=== PATIENT | female | born 1985 | race Two or more races ===

== ENCOUNTER → 2019-11-25 15:53 | Outpatient (BNVA) | payer OTHER, SELFPAY | PROVIDERS: Family Provider Family Medicine; PCP Family Medicine; Visit Provider Obstetrics & Gynecology | DX: N93.9 Abnormal uterine and vaginal bleeding, unspecified (principal) | CPT/HCPCS: 81025; 83001; 84146; 84443 ==

== ENCOUNTER → 2019-12-09 08:50 | Outpatient (BNVA) | payer OTHER, SELFPAY | PROVIDERS: Family Provider Family Medicine; PCP Family Medicine; Visit Provider Obstetrics & Gynecology | DX: R10.2 Pelvic and perineal pain (principal); N93.9 Abnormal uterine and vaginal bleeding, unspecified | CPT/HCPCS: 76830 ==

== ENCOUNTER → 2019-12-16 13:35 | Outpatient (BNVA) | payer OTHER, SELFPAY | PROVIDERS: Family Provider Family Medicine; PCP Family Medicine; Visit Provider Obstetrics & Gynecology | DX: Z12.4 Encounter for screening for malignant neoplasm of cervix (principal); N93.9 Abnormal uterine and vaginal bleeding, unspecified; R10.2 Pelvic and perineal pain | CPT/HCPCS: 88175 ==

== ENCOUNTER → 2021-11-15 13:56 | Outpatient (BNVA) | payer OTHER, SELFPAY | PROVIDERS: Family Provider Family Medicine; PCP Family Medicine; Visit Provider Obstetrics & Gynecology | DX: D25.0 Submucous leiomyoma of uterus (principal); R10.2 Pelvic and perineal pain | CPT/HCPCS: 76830 ==

== ENCOUNTER 2022-03-05 05:57 | Day surgery (SDC) | payer OTHER, SELFPAY ==
[2022-03-03 09:41] VITALS: BMI 29.2
[2022-03-03 10:08] LABS: OR HCG Qualitative Urine Negative (Negative)
[2022-03-03 10:10] LABS: Hematocrit 34.6 % (37.0-47.0); Hemoglobin 10.9 g/dL (11.5-15.3); Mean Corpuscular HGB Conc 31.5 g/dL (30.0-36.0); Mean Corpuscular Hemoglobin 23.9 pg (28.0-34.0); Mean Corpuscular Volume 75.7 fl (81-99); Mean Platelet Volume 9.5 fL (7.4-10.4); Red Blood Count 4.57 10^6/uL (4.1-5.3); Red Cell Distribution Width 19.8 % (12.1-15.1)
[2022-03-03 10:23] LABS: Bilirubin Urine Neg (Negative); Blood Urine 2+ (Negative); Glucose Urine UA Norm (Normal); Ketones Urine Negative (Negative); Leukocyte Esterase Urine Negative (Negative); Nitrate Urine Negative (Negative); Protein Urine Neg (Negative); Specific Gravity, Urine 1.005 (1.005-1.030); Urine Appearance Clear (CLEAR); Urine Color Straw (Yellow); Urobilinogen Urine Norm (Negative); pH Urine 5 (5-7)
[2022-03-03 10:24] LABS: Add Urine Microscopic? YES; Bacteria Urine 1+ /hpf; RBC Urine RARE /hpf (0-2); Squamous Epithelial Cell Urine 0-4 /hpf (0-5); WBC Urine 0-4 /hpf (0-5)
[2022-03-03 10:26] LABS: Add Urine Culture? No
[2022-03-03 10:37] LABS: Alanine Aminotransferase 12 U/L (0-33); Albumin Level 4.7 g/dL (3.5-5.2); Alkaline Phosphatase 88 U/L (35-105); Anion Gap 15.9 (5-19); Aspartate Amino Transferase 16 U/L (0-32); Blood Urea Nitrogen 14 mg/dL (6-20); Calcium 9.3 mg/dL (8.5-10.5); Carbon Dioxide 24 mmol/L (22-29); Chloride 105 mmol/L (98-107); Globulin 2.6 g/dL (1.3-4.6); Glomerular Filtration Rate 114.4 mL/min (90-130); Glucose 108 mg/dL (65-115); Osmolality Calculated 291 mOsm/kg (285-295); Potassium 4.9 mmol/L (3.5-5.1); Sodium 140 mmol/L (136-145); Total Bilirubin 0.2 mg/dL (0.15-1.2); Total Protein 7.3 g/dL (6.6-8.7)
[2022-03-03 10:45] LABS: Slide Review Slide Review Perform
[2022-03-03 10:49] LABS: Absolute Eosinophils 2.8 10^3/cmm (0.0-0.7); Basophils Absolute 2.1 10^3/cmm (0.0-0.2); Eosinophils 4 %; Lymphocytes 17 %; Monocytes Absolute 1.4 10^3/cmm (0.1-0.6); Segmented Neutrophils 54 %; Total Cells Counted 100 (0-100)
[2022-03-03 10:54] LABS: Absolute Neutrophil 45.1 10^3/cmm (1.4-6.5); Anisocytosis 1+; Blastocytes 2 % (0-0); Macrocytosis Trace; Microcytosis Trace; Platelet Estimate Increased (Normal); Poikilocytosis Trace
--- NOTE | 2022-03-03 10:55 | PC.NURSE ---
Lab called and reported the patient had some critical labs. Lab reported that the patient had a WBC of 70.4, plt 1688, with a manual diff that she saw 2 blast. Labs called to [facility].
[2022-03-03 10:56] LABS: White Blood Count 70.4 10^3/uL (4.0-10.0)
[2022-03-03 10:57] LABS: Platelet Count 1688 10^3/cmm (130-400)
--- NOTE | 2022-03-03 16:46 | ANES.PREANE2 ---
Pre-Anesthetic Assessment Height/Weight: Height 1.52 m Weight 68.039 kg Preop Diagnosis: chronic pelvic pain Operation Date: 03/05/22 12:45 Proposed Procedures p Laparoscopy, surgical ablation of uterine fibroids 20914,D25.0(Not Applicable) - Foreign Rubio MD s Laser Ablation(Not Applicable) - Foreign Rubio MD Familial anesthetic complications: None Was Beta Simone taken within 24 hours: N/A Was Clonidine taken within 24 hours: N/A Social No alcohol and No tobacco Exam alert, oriented x 3, clear to auscultation bilaterally and regular rate & rhythm Airway Submandibular: within normal limits Cervical ROM: within normal limits Mallampati: Class I Dentition: full History/ROS No significant complaints Pulmonary None reported CV/HEM None reported AUB, fibroids Hepatic None reported GI None reported Metabolic None reported Musc/skel None reported Neuropsych 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 Patient consents to proceed with general anesthesia. Risk of > 500 ml blood loss (7ml/kg in children): No Medications/Allergies Home Medications Medication Instructions Recorded Confirmed Last Taken Type ibuprofen 600 mg tablet 600 mg PO TID PRN pain #60 tabs 12/16/19 03/03/22 Unknown Rx Allergies Allergy/AdvReac Type Severity Reaction Status Date / Time ethinyl estradiol Allergy Severe hives Verified 03/03/22 09:40 [From Sprintec (28)] Latex, Natural Rubber Allergy Severe rash Verified 03/03/22 09:40 norgestimate Allergy Severe hives Verified 03/03/22 09:40 [From Sprintec (28)] [facility] Anesthesia Medical History Abnormal uterine bleeding (AUB) Family History Grandmother Breast cancer maternal diagnosed at 84 paternal diagnosed at 72 Diabetes paternal and paternal great grandmother Heart disease maternal and paternal Mother Hypertension Grandfather Heart disease maternal and paternal Denies family history of Colon cancer Ovarian cancer Clotting disorder Hyperlipidemia Anesthesia complication Bleeding disorder Uterine cancer Thyroid condition Stroke Social History Smoking and tobacco status: never smoked Alcohol intake: current Alcohol intake frequency: holidays/special occasions only Alcohol type: beer and wine Data Anesthesia : 03/03/22 09:49 03/03/22 09:49 Short CBC 03/03/22 Range/Units 09:49 WBC 70.4 H* (4.0-10.0) 10^3/uL Hgb 10.9 L (11.5-15.3) g/dL Hct 34.6 L (37.0-47.0) % MCV 75.7 L (81-99) fl Plt Count 1688 H* (130-400) 10^3/cmm BMP 03/03/22 09:49 Sodium 140 Potassium 4.9 Chloride 105 Carbon Dioxide 24 BUN 14 Creatinine 0.6 Glucose 108 Calcium 9.3 Liver Function 03/03/22 Range/Units 09:49 Total Bilirubin 0.2 (0.15-1.2) mg/dL AST 16 (0-32) U/L ALT 12 (0-33) U/L Alkaline Phosphatase 88 (35-105) U/L Albumin 4.7 (3.5-5.2) g/dL Urine 03/03/22 Range/Units 09:35 Urine Color Straw (Yellow) Urine Appearance Clear (CLEAR) Urine pH 5 (5-7) Ur Specific [place] 1.005 (1.005-1.030) Urine Protein Neg (Negative) Urine Glucose (UA) Norm (Normal) Urine Ketones Negative (Negative) Urine Nitrate Negative (Negative) Urine Bilirubin Neg (Negative) Ur Leukocyte Esterase Negative (Negative) Urine RBC Rare (0-2) /hpf Urine WBC 0-4 H (0-5) /hpf Blood Bank 03/03/22 09:49 Blood Type O Positive Rho(D) Type Positive Antibody Screen Negative Cardiac Studies: No Data to Display
[2022-03-05] VITALS (12 sets, daily range): BP systolic 107–125; BP diastolic 48–90; PULSE 70–108; RESP 16–18; TEMP 36.3–37.1; O2SAT 97–100
--- NOTE | 2022-03-05 06:24 | P.ANESUD_ITS ---
Pre-Anesthetic Update Pre-Anesthetic Assessment: Date of Surgery/Procedure: 03/05/22 Preop Elizabeth gnosis: Leiomyoma, abnormal uterine bleeding, pelvic pain Proposed Procedure: Operation Date: 03/05/22 07:00 Proposed Procedures p Laparoscopy, surgical ablation of uterine fibroids 01393,D25.0(Not Applicable) - Foreign Rubio MD s Laser Ablation(Not Applicable) - Foreign Rubio MD Any changes to Pre-Anesthetic Assessment?: No Last Intake: Intake Last Liquid Date 03/04/22 Last Liquid Time 20:00 Last Solid Date 03/04/22 Last Solid Time 17:30 Labs Last 48hrs: Short CBC 03/03/22 Range/Units 09:49 WBC 70.4 H* (4.0-10.0) 10^3/ uL Hgb 10.9 L (11.5-15.3) g/dL Hct 34.6 L (37.0-47.0) % MCV 75.7 L (81-99) fl Plt Count 1688 H* (130-400) 10^3/c mm BMP 03/03/22 09:49 Sodium 140 Potassium 4.9 Chloride 105 Carbon Dioxide 24 BUN 14 Creatinine 0.6 Glucose 108 Calcium 9.3 Liver Function 03/03/22 Range/Units 09:49 Total Bilirubin 0.2 (0.15-1.2) mg/dL AST 16 (0-32) U/L ALT 12 (0-33) U/L Alkaline Phosphata se 88 (35-105) U/L Albumin 4.7 (3.5-5.2) g/dL Urine 03/03/22 Range/Units 09:35 Urine Color Straw (Yellow) Urine Appearance Clear (CLEAR) Urine pH 5 (5-7) Ur Specific Gravit y 1.005 (1.005-1.030) Urine Protein Neg (Negative) Urine Glucose (UA) Norm (Normal) Urine Ketones Negative (Negative) Urine Nitrate Negative (Negative) Urine Bilirubin Neg (Negative) Ur Leukocyte Consuelo ase Negative (Negative) Urine RBC Rare (0-2) /hpf Urine WBC 0-4 H (0-5) /hpf Blood Bank 03/03/22 09:49 Blood Type O Positive Rho(D) Type Positive Antibody Screen Negative Vitals: Temperature 98.8 F 03/05/22 06:10 Temperature Source Temporal Artery S can 03/05/22 06:10 Pulse Rate 70 03/05/22 06:10 Respiratory Rate 18 03/05/22 06:10 Blood Pressure 121/80 03/05/22 06:10 Blood Pressure Tana n 93 03/05/22 06:10 Pulse Oximetry 99 03/05/22 06:10 Oxygen Delivery Me thod 03/05/22 06:10 Exam: Pre-Anes Outpt Exam: alert, oriented x 3, clear to auscultation bilaterally and regular rate & rhythm Cardiac Studies: No Data to Display
[2022-03-05] MEDS: scopolamine 1.5 Patch 1 PATCH TRANSDERMA (06:30)
[2022-03-05] MEDS: sodium chloride 0.9% 500 ML IV (06:30)
[2022-03-05 06:37] LABS: OR HCG Qualitative Urine Negative (Negative)
--- NOTE | 2022-03-05 06:52 | W.PM.OPSUD ---
Surgery/Procedure H&P Update DATE OF PROCEDURE: March 05, 2022 DATE H&P PERFORMED: 03/03/22 H&P UPDATE INFORMATION: I have reviewed H&P completed within last 30 days, I have examined patient prior to procedure and No changes to prior documentation PREOP DIAGNOSIS: Leiomyoma, abnormal uterine bleeding, pelvic pain PLANNED PROCEDURE: Operation Date: 03/05/22 07:00 Proposed Procedures p Laparoscopy, surgical ablation of uterine fibroids 94213,D25.0(Not Applicable) - Foreign Rubio MD s Laser Ablation(Not Applicable) - Foreign Rubio MD
[2022-03-05] MEDS: sodium chloride 0.9% 1,000 ML 30 ML IV (06:58)
[2022-03-05] MEDS: ceFOXitin 2,000 MG in sodium chloride 0.9% (plus) 50 ML 100 MG IV (06:59)
[2022-03-05 07:37] LABS: Basophils # 2.7 10^3/uL (0.0-0.1); Basophils % 4.7 %; Eosinophils # 1.7 10^3/uL (0.0-0.8); Eosinophils % 3.1 %; Hematocrit 31.4 % (37.0-47.0); Hemoglobin 9.5 g/dL (11.5-15.3); Lymphocytes # 4.7 10^3/uL (0.8-4.8); Lymphocytes % 8.4 %; Mean Corpuscular HGB Conc 30.3 g/dL (30.0-36.0); Mean Corpuscular Hemoglobin 23.5 pg (28.0-34.0); Mean Corpuscular Volume 77.5 fl (81-99); Mean Platelet Volume 9.6 fL (7.4-10.4); Monocytes # 1.5 10^3/uL (0.2-0.9); Monocytes % 2.6 %; Neutrophils # 31.36 10^3/uL (1.8-7.7); Nucleated Red Blood Cells % 0 %; Platelet Count 1247 10^3/cmm (130-400); Red Blood Count 4.05 10^6/uL (4.1-5.3); Red Cell Distribution Width 19.2 % (12.1-15.1)
[2022-03-05] MEDS: enoxaparin 30 mg/0.3 mL Syringe SUBCUT (07:44)
[2022-03-05 08:26] LABS: Slide Review Slide Review Perform
--- NOTE | 2022-03-05 08:29 | PC.NURSE ---
Lab called to report a critical lab result on patient. Patient had a WBC of 56. Dr. Rubio notified. Dr. Rubio then stated I want the plts. I stated that lab did not report a critical lab for the plts but I will look and report the result. This RN looked at the chart and found the plts and reported the plt count to the patient.
--- NOTE | 2022-03-05 08:32 | P.OP_ITS ---
Operative Report Date of procedure: March 05, 2022 Pre-op diagnosis: Preop Diagnosis Leiomyoma, abnormal uterine bleeding, pelvic pain Post-op diagnosis: Uterine fibroid Procedure done: Laparoscopic uterine fibroid radiofrequency Ablation via Acessa. Implants: none Surgeon: Foreign Rubio MD Estimated blood loss (mL): 5 IV fluids (mL): 1,000 Urine output (mL): 50 Complications: none Procedure: DESCRIPTION OF PROCEDURE: After informed consent, the patient was taken to the operating room where general anesthesia was administered. The patient was examined under anesthesia and found to have a normal uterus with normal adnexa. She was placed in the dorsal lithotomy position and prepped and draped in sterile fashion. Pre- Procedure Time-Out verifying the correct patient identity, correct procedure verified with consent, correct site and side, correct patient position, availability of correct implants and any special equipment or requirements was performed and acknowledge by the OR team. A weighted speculum was placed in the vagina, and the anterior lip of cervix was grasped with the single toothed tenaculum. A uterine manipulator was advanced into the endocervical. Tenaculum was removed after uterine manipulator was secured. The speculum was removed from the vagina. An intraumbilical incision was made with a scalpel. While tenting up on the abdomen, a Verres needle with sleeve was admitted into the intra-abdominal cavity. A saline drop test was performed and noted to be within normal limits. Pneumoperitoneum was attained with 4 liters of carbon dioxide. The Verres needle was removed. A 5 mm trocar and sleeve were admitted into the abdomen and laparoscopic confirmation of location was achieved, A second incision was made 3 cm above the symphysis pubis, and a 10 mm trocar and sleeve were admitted into the abdomen under direct, laparoscopic visualization without complication. A survey revealed normal abdominal anatomy but pelvic survey shows an enlarged uterus, normal left and right adnexa. A 5 mm blunt probe was advanced through the second trocar sleeve, and light manipulation of ovaries and uterus to assess the posterior aspects was performed. The laparoscopic ultrasound probe introduced throught the 10 mm trocar and placed directly on the posterior aspect of the uterus that allows them to locate the uterine leiomyomas. Then the Acessa handpiece was deploys placing the tip into the fibroid. The ablation was parformed with out complications. the same procedure was carried out for a second fibroid without complications. Carbon dioxide was allowed to escape from the abdomen. The instruments were removed, and skin closed with 3-O Vicryl and cover with Dermabond. The instruments were removed from the vagina, and excellent hemostasis was noted. The patient tolerated the procedure well, and sponge, lap and needle count were correct times two. The patient taken to the recovery room in good condition.
[2022-03-05] MEDS: meperidine 50 mg/mL INJ 12.5 MG IVP (08:53)
[2022-03-05] MEDS: HYDROcodone-acetaminophen 5-325 mg Tablet 1 TAB PO (09:40)
--- NOTE | 2022-03-05 10:11 | SUR.OPER ---
Markerlyu Console Model No [id number] Serial No [id number] used for procedure.
--- NOTE | 2022-03-05 11:45 | ANE.PACU2 ---
Inpatient post-anesthesia follow up: Airway intact: Yes Vital signs: Temperature 97.9 F Pulse Rate 83 Respiratory Rate 18 Blood Pressure 107/73 Pulse Oximetry 99 Oxygen Delivery Me thod Room Air Oxygen Flow Rate 6 Fraction of Inspir ed Oxygen Hydration adequate: Yes Nausea and vomiting: No Pain level: 4 Mental status: Baseline
== END 2022-03-05 10:10 | disposition home or self-care (01) ==
PROVIDERS: PCP Family Medicine; Visit Provider Obstetrics & Gynecology
PROC: (CPT 49320; principal; 2022-03-05 07:00)
DX: D25.0 Submucous leiomyoma of uterus (principal); N93.9 Abnormal uterine and vaginal bleeding, unspecified; G89.29 Other chronic pain; R10.2 Pelvic and perineal pain
CPT/HCPCS: 58674; 36415; 51702; 80053; 81001; 81025; 84703; 85007; 85025; 86850; 86900; J0694; J1100; J1200; J1650; J2175; J2250; J2370; J2405; J2704; J2710; J3010; J3490; J7030; J7040

== ENCOUNTER 2022-04-17 13:00 | Oncology outpatient (recurring) (ONCR) | payer OTHER, SELFPAY ==
[2022-03-24 09:28] LABS: Hematocrit 32.5 % (37.0-47.0); Mean Corpuscular HGB Conc 30.8 g/dL (30.0-36.0); Mean Corpuscular Hemoglobin 23.8 pg (28.0-34.0); Mean Corpuscular Volume 77.4 fl (81-99)
[2022-03-24 09:56] LABS: Glomerular Filtration Rate 114.4 mL/min (90-130)
[2022-03-24 10:14] LABS: Platelet Count 1736 10^3/cmm (130-400); Slide Review Slide Review Perform; White Blood Count 81.3 10^3/uL (4.0-10.0)
[2022-03-24 10:15] LABS: Absolute Neutrophil 46.3 10^3/cmm (1.4-6.5); Absolute Segmented Neutrophil 34.1 10/cmm (1.6-7.1); Band Neutrophils Absolute 12.2 10^3/cmm (0.0-1.2); Eosinophils 5 %; Lymphocytes 13 %; Lymphocytes Absolute 10.6 10^3/cmm (1.2-3.4); Monocytes Absolute 0.8 10^3/cmm (0.1-0.6); Platelet Estimate Increased (Normal); Segmented Neutrophils 42 %; Total Cells Counted 100 (0-100)
[2022-03-24 10:16] LABS: Anisocytosis 1+; Microcytosis 1+
[2022-03-24 10:21] LABS: Anion Gap 16.3 (5-19); Blood Urea Nitrogen 15 mg/dL (6-20); Calcium 9.3 mg/dL (8.5-10.5); Carbon Dioxide 21 mmol/L (22-29); Chloride 102 mmol/L (98-107); Ferritin 7 ng/mL (15-150); Glucose 102 mg/dL (65-115); Iron 21 ug/dL (37-145); Osmolality Calculated 281 mOsm/kg (285-295); Percent Saturation 5.9 % (20-50); Potassium 4.3 mmol/L (3.5-5.1); Sodium 135 mmol/L (136-145); Total Iron Binding Capacity 354 mcg/dl; Unsaturated Iron Binding 333 ug/dL (112-347)
[2022-03-24 10:22] LABS: Alanine Aminotransferase 17 U/L (0-33); Albumin Level 4.4 g/dL (3.5-5.2); Alkaline Phosphatase 82 U/L (35-105); Aspartate Amino Transferase 19 U/L (0-32); Globulin 2.5 g/dL (1.3-4.6); Lactate Dehydrogenase 448 U/L (135-214); Thyroid Stimulating Hormone 1.57 uIU/mL (0.27-4.20); Total Bilirubin 0.2 mg/dL (0.15-1.2); Total Protein 6.9 g/dL (6.6-8.7)
[2022-03-24 10:39] LABS: LAB Peripheral Smear Sent for Review
[2022-03-24 11:39] LABS: Vitamin B12 > 2000 pg/mL (232-1245)
[2022-03-24 12:08] LABS: Uric Acid 5.3 mg/dL (2.4-5.7)
[2022-04-07 11:26] LABS: Basophils # 3.2 10^3/uL (0.0-0.1); Basophils % 4.5 %; Eosinophils % 2.8 %; Hematocrit 28.7 % (37.0-47.0); Hemoglobin 8.9 g/dL (11.5-15.3); Lymphocytes # 6.5 10^3/uL (0.8-4.8); Lymphocytes % 9.1 %; Mean Corpuscular Hemoglobin 24.4 pg (28.0-34.0); Mean Corpuscular Volume 78.6 fl (81-99); Monocytes # 1.9 10^3/uL (0.2-0.9); Monocytes % 2.6 %; Neutrophils # 40.73 10^3/uL (1.8-7.7); Neutrophils % 57.3 %; Nucleated Red Blood Cells # 0.1 /100WBC; Nucleated Red Blood Cells % 0.2 %; Red Blood Count 3.65 10^6/uL (4.1-5.3); Red Cell Distribution Width 20.9 % (12.1-15.1)
[2022-04-07 11:56] LABS: Platelet Count 1616 10^3/cmm (130-400); White Blood Count 71.2 10^3/uL (4.0-10.0)
[2022-04-07 12:00] LABS: Slide Review Slide Review Perform
[2022-04-07 12:01] LABS: Alanine Aminotransferase 9 U/L (0-33); Albumin Level 4.6 g/dL (3.5-5.2); Alkaline Phosphatase 76 U/L (35-105); Anion Gap 12.8 (5-19); Aspartate Amino Transferase 19 U/L (0-32); Blood Urea Nitrogen 10 mg/dL (6-20); Calcium 9.3 mg/dL (8.5-10.5); Carbon Dioxide 24 mmol/L (22-29); Chloride 104 mmol/L (98-107); Globulin 2.4 g/dL (1.3-4.6); Glomerular Filtration Rate 114.4 mL/min (90-130); Glucose 97 mg/dL (65-115); Lactate Dehydrogenase 486 U/L (135-214); Osmolality Calculated 283 mOsm/kg (285-295); Potassium 3.8 mmol/L (3.5-5.1); Sodium 137 mmol/L (136-145); Total Bilirubin 0.3 mg/dL (0.15-1.2); Uric Acid 2.3 mg/dL (2.4-5.7)
[2022-04-07 12:09] LABS: Hepatitis B Core AB, Total Non-Reactive (Nonreactive); Hepatitis B Surface AB 58.3 (11.5-1000); Hepatitis B Surface Antigen Non-Reactive (Nonreactive)
[2022-04-10 10:36] LABS: Basophils # 2.3 10^3/uL (0.0-0.1); Basophils % 5.3 %; Eosinophils # 1.8 10^3/uL (0.0-0.8); Eosinophils % 4.3 %; Hematocrit 29.3 % (37.0-47.0); Lymphocytes # 4.8 10^3/uL (0.8-4.8); Lymphocytes % 11.4 %; Mean Corpuscular HGB Conc 30.7 g/dL (30.0-36.0); Mean Corpuscular Hemoglobin 24.4 pg (28.0-34.0); Mean Corpuscular Volume 79.4 fl (81-99); Mean Platelet Volume 9.6 fL (7.4-10.4); Monocytes # 0.9 10^3/uL (0.2-0.9); Monocytes % 2.1 %; Neutrophils # 24.37 10^3/uL (1.8-7.7); Neutrophils % 57.6 %; Nucleated Red Blood Cells # 0.1 /100WBC; Nucleated Red Blood Cells % 0.2 %; Positive C 1; Positive M 1; Red Blood Count 3.69 10^6/uL (4.1-5.3); Red Cell Distribution Width 21.2 % (12.1-15.1)
[2022-04-10 11:07] LABS: Platelet Count 1691 10^3/cmm (130-400); White Blood Count 42.3 10^3/uL (4.0-10.0)
--- NOTE | 2022-04-10 11:13 | XRR_ITS ---
PROCEDURE INFORMATION: Exam: XR Chest Exam date and time: 04/10/2022 11:16 AM Age: 36 years old Clinical indication: Dyspnea and shortness of breath; Patient HX: HX of leukemia; Additional info: SOB, cough TECHNIQUE: Imaging protocol: Radiologic exam of the chest. Views: 2 views. COMPARISON: ES surgery / GI images 03/05/2022 6:56 AM FINDINGS: Lungs: Unremarkable. No consolidation. Pleural spaces: Unremarkable. No pleural effusion. No pneumothorax. Heart/Mediastinum: Unremarkable. No cardiomegaly. Bones/joints: Unremarkable. XR/XR chest 2V* [id number] IMPRESSION: No acute findings.
[2022-04-12 10:44] LABS: P190 BCR ALB1 NOT DETECTED; P210 BCR ALB1 DETECTED; Prior Results NG; Source serum
[2022-04-14 08:36] LABS: Basophils # 0.9 10^3/uL (0.0-0.1); Basophils % 9.1 %; Eosinophils % 9.9 %; Hematocrit 29.7 % (37.0-47.0); Hemoglobin 8.9 g/dL (11.5-15.3); Lymphocytes # 2.1 10^3/uL (0.8-4.8); Lymphocytes % 20.4 %; Mean Corpuscular Hemoglobin 24.5 pg (28.0-34.0); Mean Corpuscular Volume 81.8 fl (81-99); Mean Platelet Volume 9.4 fL (7.4-10.4); Monocytes # 0.2 10^3/uL (0.2-0.9); Neutrophils # 5.81 10^3/uL (1.8-7.7); Neutrophils % 57.8 %; Nucleated Red Blood Cells % 0.3 %; Red Blood Count 3.63 10^6/uL (4.1-5.3); Red Cell Distribution Width 23.1 % (12.1-15.1); White Blood Count 10.1 10^3/uL (4.0-10.0)
[2022-04-14 09:38] LABS: Slide Review Slide Review Perform
[2022-04-14 09:39] LABS: Platelet Count 1541 10^3/cmm (130-400)
--- NOTE | 2022-04-17 15:42 | PC.PHAR ---
Nilotinib Education: patient arrived with 2 family members for education for santiagoigna. Patient did not bring medication with her but she states it has arrived at her house. Patient recently developed rash, moncho thinks due to allopurinol so she has been advised to stop allopurinol for now. patient complaining rash is very uncomfortable under her arm pits. Patient is to get biopsy on thursday. she understands that she is not to start nilotinib until oncologist instructs her to do so. Patient advised to take medication on an empty stomach twice daily. she is to avoid grapefruit products. we talked about common side effects such as rash, fatigue, myalgia, arthralgia, n/v/d/c. she is to call if any of these symptoms are intolerable. She is to call the office or go to the ER with palpitations, bleed, fever s/sx of pancreatitis or hepatotoxicity. she is advised not to get . she states she has her tubes tied and plans for hysterectomy in near future.
== END 2022-04-21 23:59 | disposition home or self-care (01) ==
PROVIDERS: PCP Family Medicine; Visit Provider Internal Medicine Medical Oncology
DX: D64.9 Anemia, unspecified (principal)
CPT/HCPCS: 36415; 71046; 80053; 81206; 81207; 82607; 82728; 83540; 83550; 83615; 84443; 84550; 85007; 85025; 86705; 86706; 87340; 88374

== ENCOUNTER 2022-04-21 09:45 | Day surgery (SDC) | payer OTHER, SELFPAY ==
[2022-04-17 15:04] VITALS: BMI 28.5
[2022-04-21 11:02] VITALS: BP 131/88; PULSE 84; RESP 18; TEMP 37; O2SAT 99
[2022-04-21] MEDS: sodium chloride 0.9% 1,000 ML 30 ML IV (11:07)
[2022-04-21 11:16] LABS: OR HCG Qualitative Urine Negative (Negative)
[2022-04-21 11:33] LABS: Basophils # 0.3 10^3/uL (0.0-0.1); Basophils % 6.3 %; Eosinophils % 0.4 %; Hematocrit 30.8 % (37.0-47.0); Hemoglobin 9.4 g/dL (11.5-15.3); Lymphocytes # 1.2 10^3/uL (0.8-4.8); Lymphocytes % 22.5 %; Mean Corpuscular HGB Conc 30.5 g/dL (30.0-36.0); Mean Corpuscular Hemoglobin 24.2 pg (28.0-34.0); Mean Corpuscular Volume 79.2 fl (81-99); Mean Platelet Volume 8.8 fL (7.4-10.4); Monocytes # 0.5 10^3/uL (0.2-0.9); Monocytes % 8.4 %; Neutrophils # 3.34 10^3/uL (1.8-7.7); Nucleated Red Blood Cells % 0 %; Platelet Count 1379 10^3/cmm (130-400); Red Blood Count 3.89 10^6/uL (4.1-5.3); Red Cell Distribution Width 23.3 % (12.1-15.1); White Blood Count 5.4 10^3/uL (4.0-10.0)
--- NOTE | 2022-04-21 12:00 | P.ANESASSM_ITS ---
Pre-Anesthetic Assessment Height/Weight: Height 1.52 m Weight 66.224 kg Temp Pulse Resp BP Pulse Ox O2 Del Method 98.6 F 84 18 131/88 99 04/21/22 11:02 04/21/22 11:02 04/21/22 11:02 04/21/22 11:02 04/21/22 11:02 04/21/22 11:02 Preop Diagnosis: Leiomyoma, abnormal uterine bleeding, pelvic pain Operation Date: 04/21/22 12:00 Proposed Procedures p Bone Marrow Biospy With Aspiration(Not Applicable) - Pilar Stewart MD Familial anesthetic complications: none Was Beta Simone taken within 24 hours: N/A Was Clonidine taken within 24 hours: N/A Last intake: Intake Last Liquid Date 04/20/22 Last Liquid Time 21:30 Last Solid Date 04/20/22 Last Solid Time 20:30 Social No alcohol and No tobacco Exam alert and oriented x 3 Airway Submandibular: within normal limits Cervical ROM: within normal limits Mallampati: Class II Dentition: full History/ROS No significant history except as noted Pulmonary None reported CV/HEM None reported None reported Hepatic None reported GI None reported Metabolic None reported CML diagnosed about 2 weeks ago [facility] [place] None reported Anesthetic Plan ASA status: 2 Risk of > 500 ml blood loss (7ml/kg in children): No Medications/Allergies Home Medications Medication Instructions Recorded Confirmed Last Taken Type acetaminophen 500 mg tablet 500 mg PO Q6H PRN Pain 03/05/22 04/21/22 04/20/22 History ibuprofen 800 mg tablet 800 mg PO TID PRN pain #60 tabs 03/05/22 04/21/22 2 Weeks Ago Rx ~04/07/22 nilotinib 150 mg capsule (Tasigna) 300 mg PO Q12H #112 caps 04/04/22 04/21/22 04/20/22 Rx hydroxyurea 500 mg capsule 1,000 mg PO BID #120 caps 04/07/22 04/21/22 04/20/22 Rx methylprednisolone 4 mg tablets in See Rx Instructions PO PER PKG DIR 04/17/22 04/21/22 04/21/22 Rx a dose pack (Medrol (Mitchell)) #21 ea Allergies Allergy/AdvReac Type Severity Reaction Status Date / Time ethinyl estradiol Allergy Severe hives Verified 04/21/22 10:56 [From Sprintec (28)] Latex, Natural Rubber Allergy Severe rash Verified 04/21/22 10:56 norgestimate Allergy Severe hives Verified 04/21/22 10:56 [From [facility] (28)] allopurinol Allergy Mild ALGY-Rash Verified 04/21/22 10:56 Current Medications Generic Name Dose Route Start Last Admin Trade Name Sidneyq PRN Reason Stop Dose Admin Sodium Chloride 1,000 mls @ 30 mls/hr 04/21/22 10:15 04/21/22 11:07 Sodium Chloride 0.9% IV 04/22/22 10:14 30 mls/hr .Q24H JASBIR Administration [facility] Anesthesia Medical History (Updated 04/14/22 @ 08:59 by Freya Arriaza LPN) Abnormal uterine bleeding (AUB) Benign occipital epilepsy of childhood Chronic anxiety Surgical History (Updated 03/24/22 @ 08:38 by Tavares Yanez MD) H/O tubal ligation S/P endometrial ablation 03/05/2022:laparoscopic uterine fibroid radiofrequency ablation via Acessa performed by Dr. Rubio at [facility] Family History Grandmother Breast cancer maternal diagnosed at 84 paternal diagnosed at 72 Diabetes paternal and paternal great grandmother Heart disease maternal and paternal Mother Hypertension Grandfather Heart disease maternal and paternal Denies family history of Colon cancer Ovarian cancer Clotting disorder Hyperlipidemia Anesthesia complication Bleeding disorder Uterine cancer Thyroid condition Stroke Social History Smoking and tobacco status: never smoked Alcohol intake: current Alcohol intake frequency: holidays/special occasions only Alcohol type: beer and wine Data Anesthesia : 04/21/22 11:20 Short CBC 04/21/22 Range/Units 11:20 WBC 5.4 (4.0-10.0) 10^3/uL Hgb 9.4 L (11.5-15.3) g/dL Hct 30.8 L (37.0-47.0) % MCV 79.2 L (81-99) fl Plt Count 1379 H (130-400) 10^3/cmm Neut % (Auto) 62.0 % Neut # (Auto) 3.34 (1.8-7.7) 10^3/uL Cardiac Studies: No Data to Display
--- NOTE | 2022-04-21 12:36 | W.PM.OPSUD ---
Surgery/Procedure H&P Update DATE OF PROCEDURE: April 21, 2022 DATE H&P PERFORMED: 03/03/22 CHANGES TO PREVIOUS DOCUMENTATION: Seen and examined, no obvious changes or complaints since her last visit to the clinic PREOP DIAGNOSIS: Leiomyoma, abnormal uterine bleeding, pelvic pain PRIMARY INDICATION FOR PROCEDURE: Thrombocytosis/leukocytosis/myeloproliferative disorder PLANNED PROCEDURE: Operation Date: 04/21/22 12:00 Proposed Procedures p Bone Marrow Biospy With Aspiration(Not Applicable) - Pilar Stewart MD
--- NOTE | 2022-04-21 12:55 | ANES.PREANE2 ---
Pre-Anesthetic Assessment Height/Weight: Height 1.52 m Weight 66.224 kg Temp Pulse Resp BP Pulse Ox O2 Del Method 98.6 F 84 18 131/88 99 04/21/22 11:02 04/21/22 11:02 04/21/22 11:02 04/21/22 11:02 04/21/22 11:02 04/21/22 11:02 Preop Diagnosis: Leiomyoma, abnormal uterine bleeding, pelvic pain Operation Date: 04/21/22 12:00 Proposed Procedures p Bone Marrow Biospy With Aspiration(Not Applicable) - Pilar Stewart MD Familial anesthetic complications: none Was Beta Simone taken within 24 hours: N/A Was Clonidine taken within 24 hours: N/A Last intake: Intake Last Liquid Date 04/20/22 Last Liquid Time 21: Last Solid Date 04/20/22 Last Solid Time 20:30 Last Intake: 21:30 Social No alcohol and No tobacco Exam alert, oriented x 3, clear to auscultation bilaterally and regular rate & rhythm Airway Submandibular: within normal limits Cervical ROM: within normal limits Mallampati: Class I Dentition: full Pulmonary None reported CV/HEM None reported CML None reported Hepatic None reported GI None reported Metabolic None reported Neuropsych None reported Anesthetic Plan ASA status: 2 Anesthesia: MAC Medications/Allergies Home Medications Medication Instructions Recorded Confirmed Last Taken Type acetaminophen 500 mg tablet 500 mg PO Q6H PRN Pain 03/05/22 04/21/22 04/20/22 History ibuprofen 800 mg tablet 800 mg PO TID PRN pain #60 tabs 03/05/22 04/21/22 2 Weeks Ago Rx ~04/07/22 nilotinib 150 mg capsule (Tasigna) 300 mg PO Q12H #112 caps 04/04/22 04/21/22 04/20/22 Rx hydroxyurea 500 mg capsule 1,000 mg PO BID #120 caps 04/07/22 04/21/22 04/20/22 Rx methylprednisolone 4 mg tablets in See Rx Instructions PO PER PKG DIR 04/17/22 04/21/22 04/21/22 Rx a dose pack (Medrol (Mitchell)) #21 ea Allergies Allergy/AdvReac Type Severity Reaction Status Date / Time ethinyl estradiol Allergy Severe hives Verified 04/21/22 10:56 [From Sprintec (28)] Latex, Natural Rubber Allergy Severe rash Verified 04/21/22 10:56 norgestimate Allergy Severe hives Verified 04/21/22 10:56 [From Juan C (28)] allopurinol Allergy Mild ALGY-Rash Verified 04/21/22 10:56 Current Medications Generic Name Dose Route Start Last Admin Trade Name Clemente PRN Reason Stop Dose Admin Sodium Chloride 1,000 mls @ 30 mls/hr 04/21/22 10:15 04/21/22 11:07 Sodium Chloride 0.9% IV 04/22/22 10:14 30 mls/hr .Q24H JASBIR Administration PFSH Anesthesia Medical History (Updated 04/14/22 @ 08:59 by Freya Arriaza LPN) Abnormal uterine bleeding (AUB) Benign occipital epilepsy of childhood Chronic anxiety Surgical History (Updated 03/24/22 @ 08:38 by Tavares Yanez MD) H/O tubal ligation S/P endometrial ablation 03/05/2022:laparoscopic uterine fibroid radiofrequency ablation via Acessa performed by Dr. Rubio at [facility] Family History Grandmother Breast cancer maternal diagnosed at 84 paternal diagnosed at 72 Diabetes paternal and paternal great grandmother Heart disease maternal and paternal Mother Hypertension Grandfather Heart disease maternal and paternal Denies family history of Colon cancer Ovarian cancer Clotting disorder Hyperlipidemia Anesthesia complication Bleeding disorder Uterine cancer Thyroid condition Stroke Social History Smoking and tobacco status: never smoked Alcohol intake: current Alcohol intake frequency: holidays/special occasions only Alcohol type: beer and wine Data Anesthesia : 04/21/22 11:20 Short CBC 04/21/22 Range/Units 11:20 WBC 5.4 (4.0-10.0) 10^3/uL Hgb 9.4 L (11.5-15.3) g/dL Hct 30.8 L (37.0-47.0) % MCV 79.2 L (81-99) fl Plt Count 1379 H (130-400) 10^3/cmm Neut % (Auto) 62.0 % Neut # (Auto) 3.34 (1.8-7.7) 10^3/uL Cardiac Studies: No Data to Display
[2022-04-21 13:05] VITALS: BP 90/57; PULSE 79; RESP 18; TEMP 36.1; O2SAT 100
--- NOTE | 2022-04-21 13:06 | PM.BMB ---
Bone Marrow Biopsy Bone Marrow Biopsy: I was consulted by [] office regarding bone marrow biopsy on [Kathe Sanchez]. Briefly, the patient is a [36] year old [Female] with [Thrombocytosis/leukocytosis/CML]. In the Outpatient Services Department, with nursing staff and laboratory technologists in attendance, the procedure was discussed with the patient. Appropriate consent form had been signed. Appropriate alternatives, benefits and risks of procedure were discussed with the patient and she was pre-operatively assessed with a history and physical by myself and cleared for the biopsy procedure. The patient did request IV sedation and that was provided by the Anesthesia Department. Under aseptic condition right posterior iliac area was cleaned and prepped, local anesthesia was given, about 15 cc of bone marrow aspirate and core biopsy was obtained, specimen was sent for routine histopathology, flow cytometry and cytogenetics. Patient tolerated procedure well, postprocedure nursing instructions were given. Thank you for allowing me to participate in this patient's care and diagnosis. Coding Level of Care Code Acute Engineering Technologist for Chg Fwd History Problem Focused Exam Problem Focused Medical Decision Making Straight Forward
[2022-04-21 13:24] VITALS: BP 100/68; PULSE 74; RESP 18; O2SAT 100
[2022-04-21 13:35] VITALS: BP 100/68; PULSE 67; RESP 18; O2SAT 99
--- NOTE | 2022-04-21 13:47 | ANE.PACU2 ---
Inpatient post-anesthesia follow up: Airway intact: Yes Vital signs: Temperature 97 F Pulse Rate 67 Respiratory Rate 18 Blood Pressure 100/68 Pulse Oximetry 99 Oxygen Delivery Me thod Room Air Oxygen Flow Rate 2 Fraction of Inspir ed Oxygen Hydration adequate: Yes Nausea and vomiting: No Pain level: 1 Mental status: Baseline
[2022-04-22 16:06] LABS: Leukemia Profile (BBPL) See Report; Lymphoma Profile (BBPL) See Report
[2022-04-30 10:50] LABS: Chromosome Analysis BBPL See Report
== END 2022-04-21 13:42 | disposition home or self-care (01) ==
PROVIDERS: Anesthesiology; PCP Family Medicine; Visit Provider Internal Medicine Hematology & Oncology
PROC: 07DT3ZX Extraction of Bone Marrow, Percutaneous Approach, Diagnostic (ICD-10-PCS; CPT 38222; principal; 2022-04-21 12:00)
DX: D75.839 Thrombocytosis, unspecified (principal)
CPT/HCPCS: 36415; 38222; 81025; 84703; 85025; 88184; 88185; 88237; 88264; 88291; 88305; 88311; J2704; J3010; J7030

== ENCOUNTER 2022-05-11 12:54 | Emergency (ER) | payer OTHER, SELFPAY ==
[2022-05-11] VITALS (7 sets, daily range): BP systolic 102–127; BP diastolic 67–82; PULSE 79–85; RESP 24; TEMP 36.7; O2SAT 98–100
--- NOTE | 2022-05-11 13:38 | XRR_ITS ---
PROCEDURE INFORMATION: Exam: XR Chest Exam date and time: 05/11/2022 1:44 PM Age: 36 years old Clinical indication: Shortness of breath; Additional info: SOB TECHNIQUE: Imaging protocol: Radiologic exam of the chest. Views: 2 views. COMPARISON: CR XR chest 2V* [id number] 04/10/2022 11:16 AM FINDINGS: Lungs: Unremarkable. No consolidation. Pleural spaces: Unremarkable. No pleural effusion. No pneumothorax. Heart/Mediastinum: Unremarkable. No cardiomegaly. Bones/joints: Unremarkable. XR/XR chest 2V* [id number] IMPRESSION: No acute findings.
--- NOTE | 2022-05-11 13:50 | ED_ITS ---
HPI - SOB/Dyspnea General: Chief Complaint: Shortness of Breath/Dyspnea Stated Complaint: SOB Time Seen by Provider: 05/11/22 13:25 History of Present Illness: HPI Narrative: 36-year-old female presents with feeling shortness of breath and having difficulty catching her breath. Patient reports for the last couple days she can had some cough and congestion body aches subjective fever. [place] like today it was a little bit worse. Patient does have a history of bronchitis and has used inhalers. She has an inhaler at home and used it. Patient ports that when she sits or stands up she gets a little bit dizzy. She does not have any chest pain. Associated symptoms: Reports dizziness; Deny abdominal pain, chest pain, fever(s), nausea, palpitations or vomiting Review of Systems Const: Reports: chills, body aches and fatigue; Denies: fever(s) Eyes: Denies: blurry vision or eye discharge ENMT: Denies: throat pain or ear or mastoid pain Card: Denies: chest pain or palpitations Resp: Reports: dyspnea and non-productive cough; Denies: wheezing GI: Denies: abdominal pain, nausea or vomiting : Denies: flank pain or difficulty voiding Musc: Denies: neck pain or back pain Skin/Breast: Denies: rash or erythema Neuro: Reports: dizziness; Denies: headache(s) or numbness in extremities PFS ED PFSH: Medical History (Updated 05/11/22 @ 17:51 by Lakhwinder Gloria DO) Abnormal uterine bleeding (AUB) Benign occipital epilepsy of childhood Chronic anxiety Surgical History (Updated 03/24/22 @ 08:38 by Tavares Yanez MD) H/O tubal ligation S/P endometrial ablation 03/05/2022:laparoscopic uterine fibroid radiofrequency ablation via Acessa performed by Dr. Rubio at [facility] Family History Grandmother Breast cancer maternal diagnosed at 84 paternal diagnosed at 72 Diabetes paternal and paternal great grandmother Heart disease maternal and paternal Mother Hypertension Grandfather Heart disease maternal and paternal Denies family history of Colon cancer Ovarian cancer Clotting disorder Hyperlipidemia Anesthesia complication Bleeding disorder Uterine cancer Thyroid condition Stroke Social History Smoking and tobacco status: never smoked Alcohol intake: current Alcohol intake frequency: holidays/special occasions only Alcohol type: beer and wine Physical Exam Const: COMMON NORMALS: no acute distress, patient oriented x3, alert and well nourished HENMT: COMMON NORMALS: normocephalic, hearing grossly normal bilaterally and moist oral mucous membranes HEAD & SCALP: normocephalic Eye: COMMON NORMALS: EOMs intact bilaterally and conjunctivae normal CONJUNCTIVA: Yes conjunctivae normal Resp: COMMON NORMALS: normal respiratory effort, No use of accessory muscles and clear to auscultation bilaterally AUSCULTATION: clear to auscultation bilaterally Cardio: COMMON NORMALS: regular rate and regular rhythm RATE: regular rate RHYTHM: regular rhythm GI: COMMON NORMALS: Soft to palpation and non-tender PALPATION: Yes Soft to palpation Extremity: COMMON NORMALS: full ROM and capillary refill normal Neuro: COMMON NORMALS: patient oriented x3, moves all extremities, no focal motor deficits and no sensory deficits noted SENSORIUM/ORIENTATION: Yes alert Psych: COMMON NORMALS: Normal thought process present, cooperative, normal affect and speech normal SPEECH: Yes normal speech THOUGHT PROCESS: Normal thought process present Skin: COMMON NORMALS: no rashes or lesions noted and turgor normal GENERAL SKIN EXAM: no rashes or lesions noted and turgor normal Course Vital Signs: Vital signs: Vital Signs Temperature 98.0 F 05/11/22 13:05 Pulse Rate 84 05/11/22 16:00 Respiratory Rate 24 H 05/11/22 13:05 Blood Pressure 102/67 05/11/22 17:30 Pulse Oximetry 99 05/11/22 17:30 Oxygen Delivery Me thod 05/11/22 17:30 MDM - SOB/Dyspnea Medical Decision Making Patient with likely influenza. Patient with known myeloid leukemia. She has an appointment with her oncologist tomorrow. At this time her respiratory panel is still pending. Due to the amount of influenza we have seen I will prescribe her Tamiflu and we will call her with results or she can call back to get the results. She has no significant acute findings on her labs. They are consistent with her known myeloid leukemia. Patient stable and discharged home Lab Data 05/11/22 14:10 05/11/22 14:10 Labs/Radiology: Radiology Impressions Chest X-Ray 05/11/22 13:38 IMPRESSION: No acute findings. Laboratory Results WBC 19.7 10^3/uL (4.0-10.0) H 05/11/22 14:10 RBC 4.49 10^6/uL (4.1-5.3) 05/11/22 14:10 Hgb 10.6 g/dL (11.5-15.3) L 05/11/22 14:10 Hct 34.6 % (37.0-47.0) L 05/11/22 14:10 MCV 77.1 fl (81-99) L 05/11/22 14:10 MCH 23.6 pg (28.0-34.0) L 05/11/22 14:10 MCHC 30.6 g/dL (30.0-36.0) 05/11/22 14:10 RDW 25.6 % (12.1-15.1) H 05/11/22 14:10 Plt Count 1115 10^3/cmm (130-400) H 05/11/22 14:10 MPV 10.3 fL (7.4-10.4) 05/11/22 14:10 Lymph % (Auto) Not Reportable 05/11/22 14:10 Mcdonough % (Auto) Not Reportable 05/11/22 14:10 Lymph # (Auto) Not Reportable 05/11/22 14:10 Mcdonough # (Auto) Not Reportable 05/11/22 14:10 Total Counted 100 (0-100) 05/11/22 14:10 Atypical Lymphs % 0.0 % (0-5) 05/11/22 14:10 Absolute Neutrophils 13.8 10^3/cmm (1.4-6.5) H 05/11/22 14:10 Segmented Neutrophils 61 % 05/11/22 14:10 Abs Segm Neuts (Man) 12.0 10/cmm (1.6-7.1) H 05/11/22 14:10 Band Neutrophils 9.0 % 05/11/22 14:10 Abs Band Neuts (Man) 1.8 10^3/cmm (0.0-1.2) H 05/11/22 14:10 Absolute Lymphocytes 2.0 10^3/cmm (1.2-3.4) 05/11/22 14:10 Lymphocytes (Manual) 10 % 05/11/22 14:10 Monocytes (Manual) 4.0 % 05/11/22 14:10 Absolute Monocytes 0.8 10^3/cmm (0.1-0.6) H 05/11/22 14:10 Eosinophils (Manual) 2 % 05/11/22 14:10 Absolute Eosinophils 0.3 10^3/cmm (0.0-0.7) 05/11/22 14:10 Basophils (Manual) 3.0 % 05/11/22 14:10 Absolute Basophils 0.6 10^3/cmm (0.0-0.2) H 05/11/22 14:10 Metamyelocytes 7.0 % 05/11/22 14:10 Myelocytes 3.0 % 05/11/22 14:10 Promyelocytes 1.0 % 05/11/22 14:10 Smudge Cells 1+ H 05/11/22 14:10 Platelet Estimate Increased (Normal) H 05/11/22 14:10 Giant Platelets Trace 05/11/22 14:10 Poikilocytosis 1+ H 05/11/22 14:10 Anisocytosis 1+ H 05/11/22 14:10 Sodium 137 mmol/L (136-145) 05/11/22 14:10 Potassium 3.8 mmol/L (3.5-5.1) 05/11/22 14:10 Chloride 102 mmol/L (98-107) 05/11/22 14:10 Carbon Dioxide 24 mmol/L (22-29) 05/11/22 14:10 Anion Gap 14.8 (5-19) 05/11/22 14:10 BUN 10 mg/dL (6-20) 05/11/22 14:10 Creatinine 0.7 mg/dL (0.5-0.9) 05/11/22 14:10 GFR Calculation 95.8 mL/min (90-130) 05/11/22 14:10 Glucose 100 mg/dL (65-115) 05/11/22 14:10 Calculated Osmolality 283 mOsm/kg (285-295) L 05/11/22 14:10 Calcium 8.9 mg/dL (8.5-10.5) 05/11/22 14:10 Discharge Plan Discharge Patient Disposition: Home Clinical Impression: Influenza-like illness Condition: Stable Prescriptions: New Tamiflu 75 mg capsule 75 mg PO Q12H 5 Days Qty: 10 0RF No Action Tasigna 150 mg capsule 300 mg PO Q12H Qty: 112 0RF Rx Instructions: must be taken on empty stomach; no food at least 2 hrs before or 1 hr after dose methylprednisolone [Medrol (Mitchell)] 4 mg tablets,dose pack See Rx Instructions PO PER PKG DIR Qty: 21 0RF Rx Instructions: PO PER PKG DIR levofloxacin 500 mg tablet 500 mg PO DAILY 7 Days Qty: 7 0RF acetaminophen 500 mg Tablet 500 mg PO Q6H PRN (Reason: Pain) ibuprofen 800 mg tablet 800 mg PO TID PRN (Reason: pain) Qty: 60 0RF Discharge Orders: Discharge ED (Routine); Ordered 05/11/22 Ordered By: Lakhwinder Gloria Referrals: Alexander Sosa MD [Primary Care Provider] - Discharge Diet: Usual diet Discharge Activity: Resume usual activity Patient Instructions: Influenza (DC), Opioid Safety, Pain Management Activity Restrictions/Additional Instructions: Please call back tomorrow morning if you have not heard from us regarding your results. Please keep your appointment with your oncologist in the morning. Tylenol or ibuprofen as needed for discomfort and fever. 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
--- NOTE | 2022-05-11 14:11 | PC.NURSE ---
pt states she has had productive cough x 4 days. pt states she was feeling SOB since last night that got worse today and has now resolved. pt is receiving antibiotics from oncologist from an unknown infection, started antibiotics Thursday. pt is taking chemo pills for leukemia.
[2022-05-11 14:46] LABS: Hematocrit 34.6 % (37.0-47.0); Hemoglobin 10.6 g/dL (11.5-15.3); Mean Corpuscular HGB Conc 30.6 g/dL (30.0-36.0); Mean Corpuscular Hemoglobin 23.6 pg (28.0-34.0); Mean Corpuscular Volume 77.1 fl (81-99); Mean Platelet Volume 10.3 fL (7.4-10.4); Platelet Count 1115 10^3/cmm (130-400); Red Blood Count 4.49 10^6/uL (4.1-5.3); Red Cell Distribution Width 25.6 % (12.1-15.1); White Blood Count 19.7 10^3/uL (4.0-10.0)
[2022-05-11 14:55] LABS: Anion Gap 14.8 (5-19); Blood Urea Nitrogen 10 mg/dL (6-20); Calcium 8.9 mg/dL (8.5-10.5); Carbon Dioxide 24 mmol/L (22-29); Chloride 102 mmol/L (98-107); Glomerular Filtration Rate 95.8 mL/min (90-130); Glucose 100 mg/dL (65-115); Osmolality Calculated 283 mOsm/kg (285-295); Potassium 3.8 mmol/L (3.5-5.1); Sodium 137 mmol/L (136-145)
[2022-05-11 15:50] LABS: Slide Review Slide Review Perform
[2022-05-11 15:54] LABS: Absolute Eosinophils 0.3 10^3/cmm (0.0-0.7); Band Neutrophils Absolute 1.8 10^3/cmm (0.0-1.2); Basophils Absolute 0.6 10^3/cmm (0.0-0.2); Eosinophils 2 %; Lymphocytes 10 %; Monocytes Absolute 0.8 10^3/cmm (0.1-0.6); Segmented Neutrophils 61 %; Total Cells Counted 100 (0-100)
[2022-05-11 15:55] LABS: Absolute Neutrophil 13.8 10^3/cmm (1.4-6.5); Anisocytosis 1+; Giant Platelets Trace; Platelet Estimate Increased (Normal); Poikilocytosis 1+; Smudge Cells 1+
[2022-05-11] MEDS: sodium chloride 0.9% 1,000 ML 999 ML IV (17:37)
[2022-05-11 19:24] LABS: Adenovirus Not Detected (NOT DETECT); Chlamydia Pneumoniae Not Detected (NOT DETECT); Coronavirus 229E,HKU1,NL63,OC4 Not Detected (NOT DETECT); Human Metapneumovirus Not Detected (NOT DETECT); Human Rhinovirus/Enterovirus Not Detected (NOT DETECT); Influenza A Detected (NOT DETECT); Influenza A H1 Not Detected (NOT DETECT); Influenza A H1-2009 Detected (NOT DETECT); Influenza A H3 Not Detected (NOT DETECT); Influenza B Not Detected (NOT DETECT); Mycoplasma Pneumoniae Not Detected (NOT DETECT); Parainfluenza Virus Type 1 Not Detected (NOT DETECT); Parainfluenza Virus Type 2 Not Detected (NOT DETECT); Parainfluenza Virus Type 3 Not Detected (NOT DETECT); Parainfluenza Virus Type 4 Not Detected (NOT DETECT); Respiratory Syncytial Virus A Not Detected (NOT DETECT); Respiratory Syncytial Virus B Not Detected (NOT DETECT); SARS-COV-2 Not Detected (NOT DETECT)
== END 2022-05-11 18:00 | disposition home or self-care (01) ==
PROVIDERS: Emergency Provider Student in an Organized Health Care Education/Training Program; PCP Family Medicine
DX: R06.02 Shortness of breath (principal); R05.9 Cough, unspecified; R50.9 Fever, unspecified
CPT/HCPCS: 71046; 80048; 85007; 85025; 87486; 87581; 87633; 99284; J7030

== ENCOUNTER 2022-05-19 09:30 | Oncology outpatient (recurring) (ONCR) | payer OTHER, SELFPAY ==
[2022-04-28 09:56] LABS: Hematocrit 33.9 % (37.0-47.0); Hemoglobin 10.2 g/dL (11.5-15.3); Mean Corpuscular HGB Conc 30.1 g/dL (30.0-36.0); Mean Corpuscular Hemoglobin 23.3 pg (28.0-34.0); Mean Corpuscular Volume 77.6 fl (81-99); Mean Platelet Volume 9.8 fL (7.4-10.4); Platelet Count 251 10^3/cmm (130-400); Red Blood Count 4.37 10^6/uL (4.1-5.3); Red Cell Distribution Width 23.2 % (12.1-15.1); White Blood Count 25.9 10^3/uL (4.0-10.0)
[2022-04-28 10:12] LABS: Slide Review Slide Review Perform
[2022-04-28 10:14] LABS: Alanine Aminotransferase 11 U/L (0-33); Albumin Level 4.3 g/dL (3.5-5.2); Alkaline Phosphatase 100 U/L (35-105); Anion Gap 12.4 (5-19); Aspartate Amino Transferase 20 U/L (0-32); Blood Urea Nitrogen 12 mg/dL (6-20); Calcium 9.4 mg/dL (8.5-10.5); Carbon Dioxide 24 mmol/L (22-29); Chloride 101 mmol/L (98-107); Globulin 2.7 g/dL (1.3-4.6); Glomerular Filtration Rate 95.8 mL/min (90-130); Glucose 98 mg/dL (65-115); Iron 29 ug/dL (37-145); Osmolality Calculated 276 mOsm/kg (285-295); Percent Saturation 8.4 % (20-50); Potassium 4.4 mmol/L (3.5-5.1); Sodium 133 mmol/L (136-145); Total Bilirubin 0.2 mg/dL (0.15-1.2); Total Iron Binding Capacity 345 mcg/dl; Unsaturated Iron Binding 316 ug/dL (112-347)
[2022-04-28 10:39] LABS: Absolute Eosinophils 0.7 10^3/cmm (0.0-0.7); Absolute Segmented Neutrophil 7.8 10/cmm (1.6-7.1); Anisocytosis 1+; Band Neutrophils Absolute 2.3 10^3/cmm (0.0-1.2); Eosinophils 3 %; Lymphocytes 20 %; Lymphocytes Absolute 5.2 10^3/cmm (1.2-3.4); Monocytes Absolute 2.1 10^3/cmm (0.1-0.6); Poikilocytosis Trace; Segmented Neutrophils 30 %; Total Cells Counted 100 (0-100)
[2022-04-28 10:40] LABS: Absolute Neutrophil 10.1 10^3/cmm (1.4-6.5); Platelet Estimate Normal (Normal)
[2022-05-05 10:17] LABS: Hematocrit 33.2 % (37.0-47.0); Hemoglobin 10.1 g/dL (11.5-15.3); Mean Corpuscular HGB Conc 30.4 g/dL (30.0-36.0); Mean Corpuscular Hemoglobin 23.9 pg (28.0-34.0); Mean Corpuscular Volume 78.5 fl (81-99); Mean Platelet Volume 9.4 fL (7.4-10.4); Platelet Count 937 10^3/cmm (130-400); Red Blood Count 4.23 10^6/uL (4.1-5.3); Red Cell Distribution Width 24.8 % (12.1-15.1)
[2022-05-05 10:33] LABS: Slide Review Slide Review Perform
[2022-05-05 10:35] LABS: White Blood Count 81.1 10^3/uL (4.0-10.0)
[2022-05-05 10:41] LABS: Absolute Eosinophils 0.8 10^3/cmm (0.0-0.7); Absolute Segmented Neutrophil 38.9 10/cmm (1.6-7.1); Band Neutrophils Absolute 15.4 10^3/cmm (0.0-1.2); Basophils Absolute 0.8 10^3/cmm (0.0-0.2); Eosinophils 1 %; Lymphocytes 9 %; Monocytes Absolute 3.2 10^3/cmm (0.1-0.6); Segmented Neutrophils 48 %; Total Cells Counted 100 (0-100)
[2022-05-05 10:42] LABS: Lymphocytes Absolute 7.3 10^3/cmm (1.2-3.4)
[2022-05-05 10:43] LABS: Absolute Neutrophil 54.3 10^3/cmm (1.4-6.5); Anisocytosis Trace; Platelet Estimate Increased (Normal); Poikilocytosis 1+; Smudge Cells 1+
[2022-05-12 08:39] LABS: Albumin Level 2.5 g/dL (3.5-5.2); Alkaline Phosphatase 104 U/L (35-105); Globulin 2.7 g/dL (1.3-4.6); Lactate Dehydrogenase 373 U/L (135-214); Total Bilirubin 0.3 mg/dL (0.15-1.2); Total Protein 5.2 g/dL (6.6-8.7); Uric Acid 3.9 mg/dL (2.4-5.7)
[2022-05-12 08:55] LABS: Alanine Aminotransferase < 5 U/L (0-33); Aspartate Amino Transferase 5 U/L (0-32)
[2022-05-19 10:51] LABS: Basophils # 0.1 10^3/uL (0.0-0.1); Basophils % 0.9 %; Eosinophils # 0.2 10^3/uL (0.0-0.8); Eosinophils % 3.1 %; Hemoglobin 9.6 g/dL (11.5-15.3); Lymphocytes # 1.5 10^3/uL (0.8-4.8); Lymphocytes % 19.7 %; Mean Corpuscular Hemoglobin 23.1 pg (28.0-34.0); Mean Corpuscular Volume 77.1 fl (81-99); Mean Platelet Volume 9.8 fL (7.4-10.4); Monocytes # 0.4 10^3/uL (0.2-0.9); Monocytes % 5.4 %; Neutrophils # 5.38 10^3/uL (1.8-7.7); Neutrophils % 70.2 %; Nucleated Red Blood Cells % 0 %; Platelet Count 680 10^3/cmm (130-400); Red Blood Count 4.15 10^6/uL (4.1-5.3); Red Cell Distribution Width 23.5 % (12.1-15.1); White Blood Count 7.7 10^3/uL (4.0-10.0)
== END 2022-05-21 23:59 | disposition home or self-care (01) ==
PROVIDERS: PCP Family Medicine; Visit Provider Internal Medicine Medical Oncology
DX: C92.10 Chronic myeloid leukemia, BCR/ABL-positive, not having achieved remission; D50.9 Iron deficiency anemia, unspecified; D69.1 Qualitative platelet defects; Z79.899 Other long term (current) drug therapy
CPT/HCPCS: 36415; 80053; 80076; 83540; 83550; 83615; 84550; 85007; 85025

== ENCOUNTER 2022-06-09 07:55 | Oncology outpatient (recurring) (ONCR) | payer OTHER, SELFPAY ==
[2022-06-09 08:37] LABS: Basophils # 0.1 10^3/uL (0.0-0.1); Basophils % 2.9 %; Eosinophils # 0.1 10^3/uL (0.0-0.8); Eosinophils % 2.9 %; Hemoglobin 10.7 g/dL (11.5-15.3); Lymphocytes # 1.2 10^3/uL (0.8-4.8); Lymphocytes % 30.6 %; Mean Corpuscular HGB Conc 29.7 g/dL (30.0-36.0); Mean Corpuscular Hemoglobin 22.7 pg (28.0-34.0); Mean Corpuscular Volume 76.3 fl (81-99); Mean Platelet Volume 9.4 fL (7.4-10.4); Monocytes # 0.3 10^3/uL (0.2-0.9); Monocytes % 8.2 %; Neutrophils # 2.07 10^3/uL (1.8-7.7); Neutrophils % 55.1 %; Nucleated Red Blood Cells % 0 %; Platelet Count 497 10^3/cmm (130-400); Red Blood Count 4.72 10^6/uL (4.1-5.3); Red Cell Distribution Width 19.8 % (12.1-15.1); White Blood Count 3.8 10^3/uL (4.0-10.0)
[2022-06-09 09:00] LABS: Alanine Aminotransferase 12 U/L (0-33); Albumin Level 4.4 g/dL (3.5-5.2); Alkaline Phosphatase 82 U/L (35-105); Anion Gap 12.3 (5-19); Aspartate Amino Transferase 15 U/L (0-32); Blood Urea Nitrogen 12 mg/dL (6-20); Calcium 9.1 mg/dL (8.5-10.5); Carbon Dioxide 24 mmol/L (22-29); Chloride 106 mmol/L (98-107); Globulin 2.2 g/dL (1.3-4.6); Glomerular Filtration Rate 114.4 mL/min (90-130); Glucose 95 mg/dL (65-115); Osmolality Calculated 286 mOsm/kg (285-295); Potassium 4.3 mmol/L (3.5-5.1); Sodium 138 mmol/L (136-145); Total Bilirubin 0.4 mg/dL (0.15-1.2); Total Protein 6.6 g/dL (6.6-8.7)
== END 2022-06-21 23:59 | disposition home or self-care (01) ==
PROVIDERS: Visit Provider Internal Medicine Medical Oncology
DX: C92.10 Chronic myeloid leukemia, BCR/ABL-positive, not having achieved remission; N92.6 Irregular menstruation, unspecified; D70.9 Neutropenia, unspecified; D50.9 Iron deficiency anemia, unspecified; Z79.899 Other long term (current) drug therapy
CPT/HCPCS: 80053; 85025

== ENCOUNTER 2022-07-09 13:30 | Oncology outpatient (recurring) (ONCR) | payer OTHER, SELFPAY ==
[2022-06-24 09:15] LABS: Basophils # 0.1 10^3/uL (0.0-0.1); Basophils % 1.1 %; Eosinophils # 0.2 10^3/uL (0.0-0.8); Eosinophils % 3.4 %; Hematocrit 37.9 % (37.0-47.0); Lymphocytes # 1.6 10^3/uL (0.8-4.8); Lymphocytes % 36.3 %; Mean Corpuscular Hemoglobin 21.8 pg (28.0-34.0); Mean Platelet Volume 9.8 fL (7.4-10.4); Monocytes # 0.3 10^3/uL (0.2-0.9); Monocytes % 5.7 %; Neutrophils # 2.33 10^3/uL (1.8-7.7); Neutrophils % 53.3 %; Nucleated Red Blood Cells % 0 %; Platelet Count 408 10^3/cmm (130-400); Red Blood Count 5.05 10^6/uL (4.1-5.3); Red Cell Distribution Width 17.6 % (12.1-15.1); White Blood Count 4.4 10^3/uL (4.0-10.0)
[2022-06-24 09:41] LABS: Alanine Aminotransferase 13 U/L (0-33); Albumin Level 4.2 g/dL (3.5-5.2); Alkaline Phosphatase 88 U/L (35-105); Anion Gap 12.1 (5-19); Aspartate Amino Transferase 16 U/L (0-32); Blood Urea Nitrogen 12 mg/dL (6-20); Calcium 9.2 mg/dL (8.5-10.5); Carbon Dioxide 27 mmol/L (22-29); Chloride 104 mmol/L (98-107); Globulin 2.4 g/dL (1.3-4.6); Glomerular Filtration Rate 114.4 mL/min (90-130); Glucose 107 mg/dL (65-115); Lactate Dehydrogenase 134 U/L (135-214); Osmolality Calculated 288 mOsm/kg (285-295); Potassium 4.1 mmol/L (3.5-5.1); Sodium 139 mmol/L (136-145); Total Bilirubin 0.4 mg/dL (0.15-1.2); Total Protein 6.6 g/dL (6.6-8.7)
[2022-06-25 13:28] VITALS: BP 109/78; PULSE 77; RESP 16; TEMP 37.3; O2SAT 99
[2022-06-25] MEDS: acetaminophen 325 mg Tablet 650 MG PO (13:59)
[2022-06-25] MEDS: sodium chloride 0.9% 250 ML 75 ML IV (13:59)
[2022-06-25] MEDS: diphenhydrAMINE 50 mg/mL SDV 1mL 25 MG IVP (14:00)
[2022-06-25] MEDS: iron sucrose 200 MG in sodium chloride 0.9% (100 ml) 100 ML 220 MG IV (14:07)
[2022-06-25 14:54] VITALS: BP 108/66; PULSE 75; RESP 16; TEMP 37.3; O2SAT 99
[2022-06-27] MEDS: sodium chloride 0.9% 250 ML 100 ML IV (11:03)
[2022-06-27] MEDS: acetaminophen 325 mg Tablet 650 MG PO (11:03)
[2022-06-27] MEDS: diphenhydrAMINE 50 mg/mL SDV 1mL 25 MG IVP (11:06)
[2022-06-27] MEDS: iron sucrose 200 MG in sodium chloride 0.9% (100 ml) 100 ML 220 MG IV (11:10)
[2022-06-27 11:56] VITALS: BP 113/74; PULSE 72; O2SAT 99
[2022-06-28 17:14] LABS: BCR ABL1 (IS) 12.195 (0.000); P210 BCR ALB1 DETECTED; Prior Results NG; Source Peripheral blood
[2022-06-30] MEDS: diphenhydrAMINE 25 mg Capsule PO (14:14)
[2022-06-30] MEDS: acetaminophen 325 mg Tablet 650 MG PO (14:14)
[2022-06-30] MEDS: sodium chloride 0.9% 250 ML 50 ML IV (14:19)
[2022-06-30] MEDS: iron sucrose 200 MG in sodium chloride 0.9% (100 ml) 100 ML 220 MG IV (14:23)
[2022-06-30 15:10] VITALS: BP 111/74; PULSE 80; RESP 16; TEMP 37.2; O2SAT 99
[2022-07-07] MEDS: diphenhydrAMINE 25 mg Capsule PO (13:35)
[2022-07-07] MEDS: acetaminophen 325 mg Tablet 650 MG PO (13:35)
[2022-07-07] MEDS: sodium chloride 0.9% 250 ML IV (13:38)
[2022-07-07] MEDS: iron sucrose 200 MG in sodium chloride 0.9% (100 ml) 100 ML 220 MG IV (13:52)
[2022-07-09] MEDS: diphenhydrAMINE 25 mg Capsule PO (13:54)
[2022-07-09] MEDS: acetaminophen 325 mg Tablet 650 MG PO (13:54)
[2022-07-09] MEDS: iron sucrose 200 MG in sodium chloride 0.9% (100 ml) 100 ML 220 MG IV (14:02)
[2022-07-09] MEDS: sodium chloride 0.9% (100 ml) 100 ML (14:02)
== END 2022-07-22 23:59 | disposition home or self-care (01) ==
PROVIDERS: Visit Provider Internal Medicine Medical Oncology
DX: D50.0 Iron deficiency anemia secondary to blood loss (chronic); Z79.899 Other long term (current) drug therapy
CPT/HCPCS: 36415; 80053; 81206; 83615; 85025; 96365; 96366; 96375; J1200; J1756; J7050

== ENCOUNTER 2022-08-18 12:30 | Oncology outpatient (recurring) (ONCR) | payer OTHER, SELFPAY ==
[2022-07-25 08:24] LABS: Basophils % 0.5 %; Eosinophils # 0.2 10^3/uL (0.0-0.8); Eosinophils % 3.5 %; Hematocrit 42.9 % (37.0-47.0); Lymphocytes # 1.2 10^3/uL (0.8-4.8); Lymphocytes % 20.6 %; Mean Corpuscular HGB Conc 30.3 g/dL (30.0-36.0); Mean Corpuscular Hemoglobin 23.6 pg (28.0-34.0); Mean Corpuscular Volume 77.9 fl (81-99); Mean Platelet Volume 9.8 fL (7.4-10.4); Monocytes # 0.3 10^3/uL (0.2-0.9); Monocytes % 5.6 %; Neutrophils # 4.11 10^3/uL (1.8-7.7); Neutrophils % 69.5 %; Nucleated Red Blood Cells % 0 %; Platelet Count 279 10^3/cmm (130-400); Red Blood Count 5.51 10^6/uL (4.1-5.3); Red Cell Distribution Width 22.7 % (12.1-15.1); White Blood Count 5.9 10^3/uL (4.0-10.0)
[2022-07-25 08:43] LABS: Alanine Aminotransferase 27 U/L (0-33); Albumin Level 4.6 g/dL (3.5-5.2); Alkaline Phosphatase 69 U/L (35-105); Anion Gap 13.3 (5-19); Aspartate Amino Transferase 22 U/L (0-32); Blood Urea Nitrogen 15 mg/dL (6-20); Calcium 9.1 mg/dL (8.5-10.5); Carbon Dioxide 26 mmol/L (22-29); Chloride 104 mmol/L (98-107); Globulin 2.3 g/dL (1.3-4.6); Glomerular Filtration Rate 114.4 mL/min (90-130); Glucose 102 mg/dL (65-115); Lactate Dehydrogenase 139 U/L (135-214); Osmolality Calculated 289 mOsm/kg (285-295); Potassium 4.3 mmol/L (3.5-5.1); Sodium 139 mmol/L (136-145); Total Bilirubin 0.4 mg/dL (0.15-1.2); Total Protein 6.9 g/dL (6.6-8.7)
[2022-07-29 10:55] LABS: BCR ABL1 (IS) 4.241 (0.000); P210 BCR ALB1 DETECTED; Prior Results NG; Source blood
[2022-08-18 13:43] LABS: Basophils % 0.5 %; Eosinophils # 0.1 10^3/uL (0.0-0.8); Eosinophils % 1.7 %; Hematocrit 38.2 % (37.0-47.0); Hemoglobin 12.4 g/dL (11.5-15.3); Lymphocytes # 1.6 10^3/uL (0.8-4.8); Lymphocytes % 20.7 %; Mean Corpuscular HGB Conc 32.5 g/dL (30.0-36.0); Mean Corpuscular Hemoglobin 24.8 pg (28.0-34.0); Mean Corpuscular Volume 76.6 fl (81-99); Mean Platelet Volume 9.2 fL (7.4-10.4); Monocytes # 0.5 10^3/uL (0.2-0.9); Neutrophils % 70.7 %; Nucleated Red Blood Cells % 0 %; Platelet Count 290 10^3/cmm (130-400); Red Blood Count 4.99 10^6/uL (4.1-5.3); Red Cell Distribution Width 20.8 % (12.1-15.1); White Blood Count 7.8 10^3/uL (4.0-10.0)
[2022-08-18 14:07] LABS: Blood Urea Nitrogen 13 mg/dL (6-20); Calcium 9.3 mg/dL (8.5-10.5); Carbon Dioxide 25 mmol/L (22-29); Chloride 102 mmol/L (98-107); Glomerular Filtration Rate 114.4 mL/min (90-130); Glucose 87 mg/dL (65-115); Iron 162 ug/dL (37-145); Osmolality Calculated 283 mOsm/kg (285-295); Percent Saturation 63.7 % (20-50); Sodium 137 mmol/L (136-145); Total Iron Binding Capacity 254 mcg/dl; Unsaturated Iron Binding 92 ug/dL (112-347)
== END 2022-08-19 23:59 | disposition home or self-care (01) ==
PROVIDERS: Visit Provider Internal Medicine Medical Oncology
DX: C92.10 Chronic myeloid leukemia, BCR/ABL-positive, not having achieved remission (principal); D50.0 Iron deficiency anemia secondary to blood loss (chronic)
CPT/HCPCS: 36415; 80048; 80053; 81206; 83540; 83550; 83615; 85025

== ENCOUNTER 2022-08-27 13:16 | Observation (INO) | payer OTHER, SELFPAY ==
[2022-08-26 08:10] VITALS: BMI 29.2
[2022-08-26 08:20] LABS: OR HCG Qualitative Urine Negative (Negative)
--- NOTE | 2022-08-26 08:28 | P.ANESASSM_ITS ---
Pre-Anesthetic Assessment Height/Weight: Height 1.52 m Weight 68.039 kg Preop Diagnosis: Uterine fibroid, menorrhagia, leukemia Operation Date: 08/27/22 12:50 Proposed Procedures p Total vaginal hysterectomy 68153,N93.9,D25.0,R10.2,G89.29(Not Applicable) - Foreign Rubio MD Familial anesthetic complications: None Social No alcohol and No tobacco Exam alert, oriented x 3, clear to auscultation bilaterally and regular rate & rhythm Airway Mallampati: Class II Dentition: chipped Pulmonary None reported CV/HEM None reported None reported Hepatic None reported GI None reported Metabolic None reported Musc/skel None reported Neuropsych Seizure (epilepsy ([place] seizure at age 9), states closing her eyes causes it but she usually has no symptoms except maybe a feeling of fogginess) Benign childhood epilepsy with occipital paroxysms not permitted to drive no longer on medications as of age 20 Anesthetic Plan ASA status: 2 Anesthesia: General Risk of > 500 ml blood loss (7ml/kg in children): No Other Pertinent Information CML Medications/Allergies Home Medications Medication Instructions Recorded Confirmed Last Taken Type acetaminophen 500 mg tablet 500 mg PO Q6H PRN Pain 03/05/22 08/26/22 04/20/22 History ibuprofen 800 mg tablet 800 mg PO TID PRN pain #60 tabs 03/05/22 08/26/22 2 Weeks Ago Rx ~04/07/22 nilotinib 150 mg capsule (Tasigna) 300 mg PO Q12H #112 caps 04/04/22 08/26/22 08/26/22 Rx ferrous sulfate 325 mg (65 mg 325 mg PO DAILY 06/09/22 08/26/22 08/25/22 History iron) tablet multivitamin 1 tab PO DAILY 06/09/22 08/26/22 08/25/22 History Allergies Allergy/AdvReac Type Severity Reaction Status Date / Time ethinyl estradiol Allergy Severe hives Verified 07/25/22 09:10 [From Sprintec (28)] Latex, Natural Rubber Allergy Severe rash Verified 07/25/22 09:10 norgestimate Allergy Severe hives Verified 07/25/22 09:10 [From Sprintec (28)] allopurinol Allergy Mild ALGY-Rash Verified 07/25/22 09:10 [facility] Anesthesia Medical History Abnormal uterine bleeding (AUB) Benign occipital epilepsy of childhood Chronic anxiety CML (chronic myelocytic leukemia) Surgical History H/O tubal ligation S/P endometrial ablation 03/05/2022:laparoscopic uterine fibroid radiofrequency ablation via Acessa performed by Dr. Rubio at [facility] Family History Grandmother Breast cancer maternal diagnosed at 84 paternal diagnosed at 72 Diabetes paternal and paternal great grandmother Heart disease maternal and paternal Mother Hypertension Grandfather Heart disease maternal and paternal Denies family history of Colon cancer Ovarian cancer Clotting disorder Hyperlipidemia Anesthesia complication Bleeding disorder Uterine cancer Thyroid condition Stroke Social History Smoking and tobacco status: never smoked Alcohol intake: current Alcohol intake frequency: holidays/special occasions only Alcohol type: beer and wine Female Reproductive History Date of last menstrual period: 08/04/22 Data Anesthesia Cardiac Studies: No Data to Display
[2022-08-26 09:14] LABS: Add Urine Culture? No; Add Urine Microscopic? YES; Bacteria Urine 1+ /hpf; Bilirubin Urine Neg (Negative); Blood Urine Neg (Negative); Glucose Urine UA Norm (Normal); Ketones Urine Negative (Negative); Leukocyte Esterase Urine Trace (Negative); Mucus Urine 1+ /hpf; Nitrate Urine Negative (Negative); Protein Urine Neg (Negative); RBC Urine 0-4 /hpf (0-2); Specific Gravity, Urine 1.025 (1.005-1.030); Squamous Epithelial Cell Urine 15-25 /hpf (0-5); Urine Appearance Hazy (CLEAR); Urine Color Yellow (Yellow); Urobilinogen Urine Norm (Negative); WBC Urine 0-4 /hpf (0-5); pH Urine 5 (5-7)
--- NOTE | 2022-08-26 09:42 | SUR.PREOP ---
Pre-op Chemistry & CBC drawn 08/18/22. T&S drawn today and UA sent. OR HCG obtained today also, negative. Pre-op instructions given and patient verbalized understanding.
[2022-08-27] VITALS (16 sets, daily range): BP systolic 93–139; BP diastolic 59–76; PULSE 84–102; RESP 14–18; TEMP 36.4–37.3; O2SAT 93–100; BMI 29.2
[2022-08-27 10:00] LABS: OR HCG Qualitative Urine Negative (Negative)
[2022-08-27] MEDS: sodium chloride 0.9% 500 ML IV (10:14)
[2022-08-27] MEDS: scopolamine 1.5 Patch 1 PATCH TRANSDERMA (10:15)
[2022-08-27] MEDS: sodium chloride 0.9% 1,000 ML 30 ML IV (10:15)
--- NOTE | 2022-08-27 10:57 | W.PM.OPSUD ---
Surgery/Procedure H&P Update DATE OF PROCEDURE: August 27, 2022 DATE H&P PERFORMED: 08/25/22 H&P UPDATE INFORMATION: I have reviewed H&P completed within last 30 days, I have examined patient prior to procedure and No changes to prior documentation PREOP DIAGNOSIS: Uterine fibroid, menorrhagia, leukemia PLANNED PROCEDURE: Operation Date: 08/27/22 11:10 Proposed Procedures p Total vaginal hysterectomy 76477,N93.9,D25.0,R10.2,G89.29(Not Applicable) - Foreign Rubio MD
[2022-08-27] MEDS: enoxaparin 30 mg/0.3 mL Syringe SUBCUT (10:59)
[2022-08-27] MEDS: ceFOXitin 2,000 MG in sodium chloride 0.9% (plus) 50 ML 100 MG IV (11:15)
[2022-08-27] MEDS: lidocaine-epi 2% 20 mL INJ 10 ML INJECTION (12:09)
--- NOTE | 2022-08-27 12:49 | P.OP_ITS ---
Operative Report Date of procedure: August 27, 2022 Pre-op diagnosis: Preop Diagnosis Uterine fibroid, menorrhagia, leukemia Post-op diagnosis: Same as above Post-op findings: Enlarged uterus Procedure done: Total vaginal history Specimens removed/disposition: Uterus Surgeon: Foreign Rubio MD Estimated blood loss (mL): 200 IV fluids (mL): 1,800 Urine output (mL): 200 Complications: None Procedure: After informed consent and risks, benefits, indications and alternatives reviewed with the patient was taken to the operating room. The patient was placed in dorsal lithotomy position prepped, and draped in the usual sterile fashion. The pre-procedure timeout verifying the correct patient, procedure, site and side, could not requirements was performed and acknowledge by the OR team. A Aguirre catheter was placed. A Bookwalter vaginal retractor was placed into the vagina in usual manner visualize the cervix. Cervix was grasped with a single tooth tenaculum and circumferentially infiltrated with 2% lidocaine with epinephrine. Then cervix was circumferentially incised with bovie and the bladder was dissected off the pubovesical cervical fascia anteriorly with a sponge stick and Metzenbaum scissors. The anterior peritoneal reflection was identified and the anterior cul-de-sac was entered sharply with Metzenbaum scissors. The same procedure was performed posteriorly and a posterior colpotomy was made through the posterior cul-de-sac space without difficulty and the posterior blade of the Bookwalter vaginal retractor was advanced posteriorly into the cul-de-sac. At this time, the left and right uterosacral ligaments were isolated and ligated with 0 Vicryl. The Enseal device was placed over the uterosacral ligaments on either side and was then used in a serial fashion up through the cardinal ligaments bilaterally cross-clamped, cut, and sealed with the Enseal device. Finally, the uterine arteries were cross-clamped, cut, sealed and ligated with the Enseal device. Hemostasis was assured. The broad ligaments were then serially clamped, sealed and cut with the Enseal device on both sides. Excellent hemostasis was visualized. Both cornua were clamped, sealed and cut with the Enseal device. Then the pedicles were then suture ligated with excellent hemostasis. The uterus was excised and submitted for pathologic evaluation. No other abnormalities were noted in the pelvic cavity. Then the right side Infundibular ligament was identified. The ureter was confirmed along the pelvic side wall and peristalsis was noted. The Enseal d evice was then used to clamp, sealed and transcepted at middistance, again being sure to be clear of the ureter and the fallopian tube and ovary were removed. The same process was then repeated on the left side. Good hemostasis was assure on both sides. The peritoneum was then closed in a pursestring fashion with 0 Vicryl suture. The vaginal cuff angles were closed with [id number] #0 Vicryl suture on both sides and transfixed with the ipsilateral cardinal and uterosacral ligaments. The remainder of the vaginal cuff was closed with #0 Vicryl in a running locked fashion. At this time, instruments were removed from the vagina at hemostasis assured. Then the Aguirre catheter was removed and cystoscope was inserted. The bladder was filled with sterile water. Complete evaluation of the bladder mucosa was performed noting no lacerations, dimpling, tears, bleeding of the mucosa or muscular layers. Both ureteral orifices were identified. Prompt excretion of urine from both ureteral orifices was noted. Cystoscope was withdrawn. Aguirre catheter was then placed yielding clear todd urine. A vaginal packing with Premarin cream was placed and the patient was taken out of dorsal lithotomy position and awakened from the general anesthesia. The patient tolerated the procedure well and was taken to the PACU recovery room in a stable condition. Sponge, lap, needle and instruments counts were correct x3.
[2022-08-27] MEDS: fentaNYL 50 mcg/mL INJ 2mL IVP (13:05)
[2022-08-27] MEDS: metoclopramide 5 mg/mL SDV 2 mL 10 MG IVP (13:48)
[2022-08-27] MEDS: ketorolac 30 mg/mL INJ IVP ×2 (13:48→20:17)
--- NOTE | 2022-08-27 14:43 | ANE.PACU2 ---
Inpatient post-anesthesia follow up: Airway intact: Yes Vital signs: Temperature 98.0 F Pulse Rate 96 Respiratory Rate 17 Blood Pressure 117/72 Pulse Oximetry 96 Oxygen Delivery Me thod Room Air Oxygen Flow Rate 6 Fraction of Inspir ed Oxygen Hydration adequate: Yes Nausea and vomiting: No Pain level: 1 Mental status: Baseline
[2022-08-27] MEDS: HYDROcodone-acetaminophen 5-325 mg Tablet PO (15:04)
[2022-08-27] MEDS: dextrose 5%-lactated ringers 1,000 ML 125 ML IV (19:14)
[2022-08-27 19:20] LABS: Basophils % 0.1 %; Hematocrit 28.5 % (37.0-47.0); Hemoglobin 8.8 g/dL (11.5-15.3); Lymphocytes # 0.6 10^3/uL (0.8-4.8); Lymphocytes % 3.8 %; Mean Corpuscular HGB Conc 30.9 g/dL (30.0-36.0); Mean Corpuscular Hemoglobin 25.3 pg (28.0-34.0); Mean Corpuscular Volume 81.9 fl (81-99); Mean Platelet Volume 10.1 fL (7.4-10.4); Monocytes # 0.3 10^3/uL (0.2-0.9); Monocytes % 1.9 %; Neutrophils # 14.14 10^3/uL (1.8-7.7); Neutrophils % 93.5 %; Nucleated Red Blood Cells % 0 %; Platelet Count 235 10^3/cmm (130-400); Red Blood Count 3.48 10^6/uL (4.1-5.3); Red Cell Distribution Width 20.5 % (12.1-15.1); White Blood Count 15.1 10^3/uL (4.0-10.0)
[2022-08-28] VITALS (13 sets, daily range): BP systolic 101–117; BP diastolic 56–71; PULSE 81–104; RESP 16–18; TEMP 36.5–37.4; O2SAT 96–98
[2022-08-28] MEDS: HYDROcodone-acetaminophen 5-325 mg Tablet PO ×2 (00:15→14:21)
[2022-08-28] MEDS: ketorolac 30 mg/mL INJ IVP ×2 (01:53→08:03)
--- NOTE | 2022-08-28 04:26 | PC.NURSE ---
Patient was helped to the chair and tolerated it well. When she first sat up in bed she felt dizzy but after sitting on the side of the bed for a couple minutes the dizziness subsided and she was able to stand up and transfer to the bed. She complained of mild pain in her abdomen with walking to the chair but is rating it 2/10.
[2022-08-28] MEDS: dextrose 5%-lactated ringers 1,000 ML 125 ML IV (04:28)
--- NOTE | 2022-08-28 04:45 | PC.NURSE ---
Patient was helped from the chair to a standing position and then walked in the rubi for two laps. She denied dizziness. She tolerated the walk well.
[2022-08-28 05:14] LABS: Hematocrit 24.3 % (37.0-47.0); Hemoglobin 7.7 g/dL (11.5-15.3); Mean Corpuscular HGB Conc 31.7 g/dL (30.0-36.0); Mean Corpuscular Hemoglobin 25.2 pg (28.0-34.0); Mean Corpuscular Volume 79.7 fl (81-99); Mean Platelet Volume 10.3 fL (7.4-10.4); Platelet Count 219 10^3/cmm (130-400); Red Blood Count 3.05 10^6/uL (4.1-5.3); Red Cell Distribution Width 20.6 % (12.1-15.1); White Blood Count 10.6 10^3/uL (4.0-10.0)
[2022-08-28] MEDS: simethicone 80 mg Chew PO (08:09)
[2022-08-28] MEDS: docusate sodium 100 mg Capsule PO ×2 (08:09→20:29)
[2022-08-28] MEDS: sodium chloride 0.9% 100 mL Bag 50 ML IV ×2 (11:05→13:50)
[2022-08-28] MEDS: diphenhydrAMINE 25 mg Capsule PO (11:40)
[2022-08-28] MEDS: acetaminophen 325 mg Tablet 650 MG PO (11:40)
[2022-08-28] MEDS: ibuprofen 800 mg tablet PO ×2 (13:31→20:29)
[2022-08-28 18:32] LABS: Basophils % 0.1 %; Eosinophils # 0.1 10^3/uL (0.0-0.8); Eosinophils % 0.7 %; Hemoglobin 10.2 g/dL (11.5-15.3); Lymphocytes # 2.2 10^3/uL (0.8-4.8); Lymphocytes % 24.6 %; Mean Corpuscular HGB Conc 32.9 g/dL (30.0-36.0); Mean Corpuscular Hemoglobin 26.6 pg (28.0-34.0); Mean Corpuscular Volume 80.7 fl (81-99); Monocytes # 0.7 10^3/uL (0.2-0.9); Monocytes % 7.3 %; Neutrophils # 6.01 10^3/uL (1.8-7.7); Neutrophils % 67.1 %; Nucleated Red Blood Cells % 0 %; Platelet Count 167 10^3/cmm (130-400); Red Blood Count 3.84 10^6/uL (4.1-5.3); Red Cell Distribution Width 18.4 % (12.1-15.1)
[2022-08-29 04:00] VITALS: BP 111/75; PULSE 85; RESP 16; TEMP 36.7; O2SAT 96
[2022-08-29] MEDS: ibuprofen 800 mg tablet PO ×2 (04:38→12:35)
--- NOTE | 2022-08-29 06:00 | US_ITS ---
WS: [id number] Abdominal ultrasound, limited. History: Evaluate for fluid. Comparison: None. All 4 quadrants are imaged by ultrasound to evaluate for ascites. There is a small amount of fluid in the RIGHT upper quadrant. Fluid in Morison's pouch. Small amount of fluid in the LEFT upper and lowe r quadrants. Mild distention of the urinary bladder. There are a few low-level echoes present within the fluid. This could be due to hemorrhage or infecti on. US/US abdomen limited [id number] IMPRESSION: Small amount of peritoneal fluid is identified. Largest component in the LEFT u pper quadrant. There is also. Small amount of fluid in Morison's pouch.
[2022-08-29 06:04] LABS: Basophils % 0.3 %; Eosinophils # 0.1 10^3/uL (0.0-0.8); Eosinophils % 1.2 %; Hematocrit 31.9 % (37.0-47.0); Hemoglobin 10.3 g/dL (11.5-15.3); Lymphocytes # 1.8 10^3/uL (0.8-4.8); Lymphocytes % 23.1 %; Mean Corpuscular HGB Conc 32.3 g/dL (30.0-36.0); Mean Corpuscular Hemoglobin 26.1 pg (28.0-34.0); Mean Corpuscular Volume 80.8 fl (81-99); Mean Platelet Volume 10.3 fL (7.4-10.4); Monocytes # 0.6 10^3/uL (0.2-0.9); Monocytes % 7.6 %; Neutrophils # 5.13 10^3/uL (1.8-7.7); Neutrophils % 67.5 %; Nucleated Red Blood Cells % 0 %; Platelet Count 163 10^3/cmm (130-400); Red Blood Count 3.95 10^6/uL (4.1-5.3); Red Cell Distribution Width 18.4 % (12.1-15.1); White Blood Count 7.6 10^3/uL (4.0-10.0)
[2022-08-29] MEDS: docusate sodium 100 mg Capsule PO (09:41)
[2022-08-29 09:45] VITALS: BP 102/69; PULSE 90; RESP 16; TEMP 36.8; O2SAT 98
[2022-08-29] MEDS: simethicone 80 mg Chew PO (12:35)
--- NOTE | 2022-08-29 12:55 | P.DS_ITS ---
Discharge Providers ASSET PROTECTION ASSISTANT Date of Admission: 08/27/22 13:16 Date of Discharge: 08/29/22 Attending Provider at Admission: Foreign Rubio MD Attending Provider at Discharge: Foreign Rubio MD Primary ASSET PROTECTION ASSISTANT: Foreign Rubio MD Reason for Visit Reason for Visit: N93.9, D25.0, R10.2, G89.29 Hospital Course Hospital Course Mrs. Reid 36-year-old female with uterine fibroid and associated abnormal uterine bleeding, anemia. Leukemia patient. Admitted for planned total vaginal hysterectomy. The procedure was performed without complication. Overnight observation significant for dizziness. Postop CBC shows significant decrease in hemoglobin. 2 unit of packed red blood cells were transfused. She was Kept 1 more night observation after blood transfusion. H&H post transfusion and morning stable. She is afebrile and hemodynamically stable postoperative day 2. Tolerating diet well. Ambulating without difficulty. Referring some mild bloating. Patient encouraged more ambulation. Was also counseled regarding pelvic rest for 6 weeks (no sex, no tampons, no vaginal douches). Return to the emergency room if any fever, increased bleeding or pain. Physical Exam Narrative: GA: Alert and oriented ?3. HEENT: WNL. Heart: Regular rate and rhythm. Lungs: Clear to auscultation bilaterally. Abdomen: Bowel sounds present, nontender, minimal tenderness, incision clean and dry, no redness, pain or edema. INFORMATION RECEPTIONIST: No bleeding. Extremities: No edema, no cyanosis, no calves pain. Urinary Catheter Management: Aguirre: Cath Placed During This Visit: yes, but has since been removed by the nurse Reason for Continuing Indwelling Catheter: Decision to DC Catheter Urinary Catheter Date of Insertion: 08/27/22 Urinary Catheter Time of Insertion: 11:29 Date Urinary Catheter Removed: 08/28/22 Time Urinary Catheter Discontinued: 05:10 History History History 4 Term 2 0 Miscarriages/Ectopic 2 Living Children 2 Discharge Data Studies Completed and Pending Completed Studies During Hospitalization Category Date Time Status US abdomen limited [id number] Routine Ultrasound 08/29/22 06:00 Completed Pending at discharge Category Date Time Status Pathology: Surgical [PTH] Routine Pth 08/27/22 12:24 Received Radiology Impressions Abdomen Ultrasound 08/29/22 06:00 IMPRESSION: Small amount of peritoneal fluid is identified. Largest component in the LEFT upper quadrant. There is also. Small amount of fluid in Morison's pouch. Laboratory Results WBC 7.6 10^3/uL (4.0-10.0) 08/29/22 05:57 RBC 3.95 10^6/uL (4.1-5.3) L 08/29/22 05:57 Hgb 10.3 g/dL (11.5-15.3) L 08/29/22 05:57 Hct 31.9 % (37.0-47.0) L 08/29/22 05:57 MCV 80.8 fl (81-99) L 08/29/22 05:57 MCH 26.1 pg (28.0-34.0) L 08/29/22 05:57 MCHC 32.3 g/dL (30.0-36.0) 08/29/22 05:57 RDW 18.4 % (12.1-15.1) H 08/29/22 05:57 Plt Count 163 10^3/cmm (130-400) 08/29/22 05:57 MPV 10.3 fL (7.4-10.4) 08/29/22 05:57 Neut % (Auto) 67.5 % 08/29/22 05:57 Lymph % (Auto) 23.1 % 08/29/22 05:57 Elk % (Auto) 7.6 % 08/29/22 05:57 Eos % (Auto) 1.2 % 08/29/22 05:57 Baso % (Auto) 0.3 % 08/29/22 05:57 Neut # (Auto) 5.13 10^3/uL (1.8-7.7) 08/29/22 05:57 Lymph # (Auto) 1.8 10^3/uL (0.8-4.8) 08/29/22 05:57 Elk # (Auto) 0.6 10^3/uL (0.2-0.9) 08/29/22 05:57 Eos # (Auto) 0.1 10^3/uL (0.0-0.8) 08/29/22 05:57 Baso # (Auto) 0.0 10^3/uL (0.0-0.1) 08/29/22 05:57 Nucleated RBC % (auto) 0 % 08/29/22 05:57 Nucleated RBCs # 0.0 /100WBC 08/29/22 05:57 Urine Color Yellow (Yellow) 08/26/22 08:06 Urine Appearance Hazy (CLEAR) A 08/26/22 08:06 Urine pH 5 (5-7) 08/26/22 08:06 Ur Specific [place] 1.025 (1.005-1.030) 08/26/22 08:06 Urine Protein Neg (Negative) 08/26/22 08:06 Urine Glucose (UA) Norm (Normal) 08/26/22 08:06 Urine Ketones Negative (Negative) 08/26/22 08:06 Urine Blood Neg (Negative) 08/26/22 08:06 Urine Nitrate Negative (Negative) 08/26/22 08:06 Urine Bilirubin Neg (Negative) 08/26/22 08:06 Urine Urobilinogen Norm mg/dL (Negative) 08/26/22 08:06 Ur Leukocyte Esterase Trace (Negative) H 08/26/22 08:06 Urine RBC 0-4 /hpf (0-2) H 08/26/22 08:06 Urine WBC 0-4 /hpf (0-5) H 08/26/22 08:06 Ur Squamous Epith Cells 15-25 /hpf (0-5) H 08/26/22 08:06 Amorphous Sediment Not Reportable 08/26/22 08:06 Urine Bacteria 1+ /hpf (NONE) H 08/26/22 08:06 Urine Mucus 1+ /hpf 08/26/22 08:06 Urine HCG, Qual Negative (Negative) 08/27/22 09:58 Blood Type O Positive 08/26/22 08:15 Rho(D) Type Positive 08/26/22 08:15 Antibody Screen Negative 08/26/22 08:15 Crossmatch See Detail 08/26/22 08:15 Vitals Last Vital Signs Temp 98.3 F 08/29/22 09:45 Pulse 90 08/29/22 09:45 Resp 16 08/29/22 09:45 BP 102/69 08/29/22 09:45 Pulse Ox 98 08/29/22 09:45 O2 Del Method 08/29/22 09:45 O2 Flow Rate 6 08/27/22 12:52 Results INFORMATION RECEPTIONIST Labs Intake & Output 08/28/22 08/29/22 08/29/22 22:59 06:59 14:59 Intake Total 1350 / 2700 Balance 1350 / 2300 Intake: IV 1000 / 2000 sodium chloride 0.9% 1,000 ml @ 1000 / 1000 30 mls/hr IV .Q[facility] Rx#: [id number] Intake (Blood Product) Amt 350 / 700 Leukocyte Reduced Rbc Unit 350 / 350 [id number] Other: # Voids 2 4 Laboratory Tests 08/18/22 08/27/22 08/28/22 13:36 19:08 05:00 WBC 7.8 15.1 H 10.6 H Hgb 12.4 8.8 L 7.7 L 08/28/22 08/29/22 18:05 05:57 WBC 9.0 7.6 Hgb 10.2 L D 10.3 L INFORMATION RECEPTIONIST Ultrasound Abdominal ultrasound, limited. History: Evaluate for fluid. Comparison: None. All 4 quadrants are imaged by ultrasound to evaluate for ascites. There is a small amount of fluid in the RIGHT upper quadrant. Fluid in Morison's pouch. Small amount of fluid in the LEFT upper and lower quadrants. Mild distention of the urinary bladder. There are a few low-level echoes present within the fluid. This could be due to hemorrhage or infection. US/US abdomen limited [id number] IMPRESSION: Small amount of peritoneal fluid is identified. Largest component in the LEFT upper quadrant. There is also. Small amount of fluid in Morison's pouch. Discharge Plan Discharge Patient Disposition: Home Condition: Good Prescriptions: New hydrocodone-acetaminophen 5-325 mg tablet 1 tab PO Q4H PRN (Reason: pain) Qty: 20 0RF acetaminophen 325 mg capsule 325 mg PO Q4H PRN (Reason: fever or pain) Qty: 60 3RF ferrous sulfate [Iron (ferrous sulfate)] 325 mg (65 mg iron) tablet 325 mg PO BID Qty: 60 0RF ibuprofen 800 mg tablet 800 mg PO TID PRN (Reason: pain) Qty: 60 0RF Continued multivitamin Tablet 1 tab PO DAILY ferrous sulfate 325 mg (65 mg iron) tablet 325 mg PO DAILY Tasigna 150 mg capsule 300 mg PO Q12H Qty: 112 0RF Hold Instructions: Doctor's Order Rx Instructions: must be taken on empty stomach; no food at least 2 hrs before or 1 hr after dose acetaminophen 500 mg Tablet 500 mg PO Q6H PRN (Reason: Pain) ibuprofen 800 mg tablet 800 mg PO TID PRN (Reason: pain) Qty: 60 0RF Discharge Orders: Discharge Order (Routine); Ordered 08/29/22 Ordered By: Foreign Rubio Referrals: Foreign Rubio MD [Physician] - 09/09/22 11:00 am (2 week post-op: 09/09/22 @11:00 6 week post-op: 10/07/22 @1:30) Discharge Diet: Usual diet Discharge Activity: Limit activity as instructed Patient Instructions: Blood Transfusion (GEN), Vaginal Hysterectomy (DC), OB Abdominal Surgery - [facility], OB Discharge Report, OB Food/Drug Interaction Guide, Opioid Safety Activity Restrictions/Additional Instructions: 1. Please call [facility] on next working day to make your post-operative appointment in 2 weeks. 2. Please stay home until you come back to the clinic on first post-operative check up. 3. Please follow instructions on your medications CAREFULLY. 4. If you have abdominal incision, do not cover it unless dressing is necessary because of drainage. OK to shower, but avoid bath. Leave steri-strips until they fall off. If they are still on one week after surgery, you may remove them. 5. If you had vaginal surgery or vaginal repair, Dr. Rubio may instruct you to take SITZ bath. 6. Yellow, blood tinged odorous vaginal discharge is usually normal after hysterectomy or vaginal surgeries. 7. No sexual intercourse, tampons, or douches until you are completely released from the post-operative care. 8. Avoid constipation by eating right and maybe using some Metamucil or Milk of Magnesia. 9. All prescription refills are given during the working hours. Please do no wait till it runs out. Call the clinic at [phone] before your medication runs out. The clinic will get in touch with your doctor to prescribe medications if necessary. 10. Please remain within 40 mile radius from our hospital because emergencies do happen now and then during the post-operative period. 11. If you have stairs at home, take one step at a time slowly and minimize the number of trips. It helps to stay in one floor for the next few days. No l ifting except what you can lift by one hand until you are released from the post-operative care. 12. Driving is discouraged until you are well healed. It may be 3-4 weeks before you feel strong enough to drive. You should be able to turn and look through the rear window without pain and you should be able to push the brake pedal very hard without pain before you drive. No fast rules, but SAFETY should be your primary concern. DO NOT drive if you are on sedating medications such as narcotics. 13. Call the clinic (during working hours) to make urgent appointment or go to the Emergency room, if any of the following occurs: i. Vaginal bleeding becomes heavy, more than a period. ii. Incision becomes red and sore, or drains pus. iii. Your temperature is over 100.4 or you have chill. iv. IV site becomes red and swollen (a little ``knot?? is usually OK) v. Persistent nausea and vomiting vi. Persistent constipation or diarrhea vii. Rash or allergic reaction to medications. Discharge Attestations ASSET PROTECTION ASSISTANT Time Spent in Discharge Care*: greater than 30 min Coding Level of Care Code Acute Code for Chg Fwd
[2022-08-29 13:49] VITALS: BP 114/75; PULSE 71; RESP 16; TEMP 36.8; O2SAT 98
== END 2022-08-29 13:50 | disposition home or self-care (01) ==
LOC: OBGYN 13:17
PROVIDERS: Anesthesiology; Admitting Provider Obstetrics & Gynecology; Visit Provider Obstetrics & Gynecology
PROC: (CPT 58260; principal; 2022-08-27 11:00)
DX: D25.9 Leiomyoma of uterus, unspecified (principal); N92.0 Excessive and frequent menstruation with regular cycle; C95.90 Leukemia, unspecified not having achieved remission
CPT/HCPCS: 58260; 36415; 36430; 76705; 81001; 81025; 84703; 85025; 85027; 86850; 86900; 86920; 88307; G0378; J0694; J1100; J1170; J1200; J1650; J1885; J2405; J2704; J2765; J3010; J3490; J7030; J7040; J7121; P9016; Q9968

== ENCOUNTER 2022-09-09 08:50 | Oncology outpatient (recurring) (ONCR) | payer OTHER, SELFPAY ==
[2022-09-09 09:37] LABS: Basophils % 0.4 %; Eosinophils # 0.2 10^3/uL (0.0-0.8); Eosinophils % 2.1 %; Hemoglobin 14.2 g/dL (11.5-15.3); Lymphocytes # 1.4 10^3/uL (0.8-4.8); Lymphocytes % 15.5 %; Mean Corpuscular HGB Conc 32.3 g/dL (30.0-36.0); Mean Corpuscular Hemoglobin 25.8 pg (28.0-34.0); Mean Platelet Volume 9.2 fL (7.4-10.4); Monocytes # 0.4 10^3/uL (0.2-0.9); Monocytes % 4.9 %; Neutrophils # 6.94 10^3/uL (1.8-7.7); Neutrophils % 76.5 %; Nucleated Red Blood Cells % 0 %; Platelet Count 373 10^3/cmm (130-400); Red Cell Distribution Width 17.2 % (12.1-15.1); White Blood Count 9.1 10^3/uL (4.0-10.0)
[2022-09-09 10:07] LABS: Iron 58 ug/dL (37-145); Percent Saturation 24.2 % (20-50); Total Iron Binding Capacity 239 mcg/dl; Unsaturated Iron Binding 181 ug/dL (112-347)
[2022-09-13 11:04] LABS: BCR ABL1 (IS) 0.187 (0.000); P210 BCR ALB1 DETECTED; Prior Results NG; Source blood
== END 2022-09-19 23:59 | disposition home or self-care (01) ==
LOC: ONCMED 08:51
PROVIDERS: Visit Provider Internal Medicine Medical Oncology
DX: C92.10 Chronic myeloid leukemia, BCR/ABL-positive, not having achieved remission (principal); D50.0 Iron deficiency anemia secondary to blood loss (chronic)
CPT/HCPCS: 36415; 81000; 81206; 83540; 83550; 85025; 87086

== ENCOUNTER 2022-10-15 14:30 | Oncology outpatient (recurring) (ONCR) | payer OTHER, SELFPAY ==
[2022-10-15 15:09] LABS: Basophils % 0.5 %; Eosinophils # 0.2 10^3/uL (0.0-0.8); Eosinophils % 2.2 %; Hematocrit 39.6 % (37.0-47.0); Hemoglobin 13.3 g/dL (11.5-15.3); Lymphocytes # 1.5 10^3/uL (0.8-4.8); Lymphocytes % 18.5 %; Mean Corpuscular HGB Conc 33.6 g/dL (30.0-36.0); Mean Corpuscular Hemoglobin 27.3 pg (28.0-34.0); Mean Corpuscular Volume 81.3 fl (81-99); Mean Platelet Volume 9.6 fL (7.4-10.4); Monocytes # 0.5 10^3/uL (0.2-0.9); Monocytes % 6.5 %; Neutrophils # 5.62 10^3/uL (1.8-7.7); Neutrophils % 71.9 %; Nucleated Red Blood Cells % 0 %; Platelet Count 258 10^3/cmm (130-400); Red Blood Count 4.87 10^6/uL (4.1-5.3); Red Cell Distribution Width 14.6 % (12.1-15.1); White Blood Count 7.8 10^3/uL (4.0-10.0)
[2022-10-15 15:43] LABS: Alanine Aminotransferase 14 U/L (0-33); Albumin Level 4.5 g/dL (3.5-5.2); Alkaline Phosphatase 87 U/L (35-105); Anion Gap 14.3 (5-19); Aspartate Amino Transferase 13 U/L (0-32); Blood Urea Nitrogen 13 mg/dL (6-20); Calcium 8.7 mg/dL (8.5-10.5); Carbon Dioxide 26 mmol/L (22-29); Chloride 101 mmol/L (98-107); Ferritin 280 ng/mL (15-150); Globulin 2.4 g/dL (1.3-4.6); Glomerular Filtration Rate 114.4 mL/min (90-130); Glucose 97 mg/dL (65-115); Iron 94 ug/dL (37-145); Lactate Dehydrogenase 146 U/L (135-214); Osmolality Calculated 284 mOsm/kg (285-295); Percent Saturation 41.2 % (20-50); Potassium 4.3 mmol/L (3.5-5.1); Sodium 137 mmol/L (136-145); Total Bilirubin 0.6 mg/dL (0.15-1.2); Total Iron Binding Capacity 228 mcg/dl; Total Protein 6.9 g/dL (6.6-8.7); Unsaturated Iron Binding 134 ug/dL (112-347)
[2022-10-18 23:24] LABS: BCR ABL1 (IS) 0.181 (0.000); P210 BCR ALB1 DETECTED; Prior Results EDTA; Source blood
== END 2022-10-19 23:59 | disposition home or self-care (01) ==
PROVIDERS: Visit Provider Internal Medicine Medical Oncology
DX: C92.10 Chronic myeloid leukemia, BCR/ABL-positive, not having achieved remission (principal); Z79.899 Other long term (current) drug therapy; Z86.2 Personal history of diseases of the blood and blood-forming organs and certain disorders involving the immune mechanism; Z90.710 Acquired absence of both cervix and uterus
CPT/HCPCS: 36415; 80053; 81206; 82728; 83540; 83550; 83615; 85025

== ENCOUNTER 2023-01-19 14:48 | Oncology outpatient (recurring) (ONCR) | payer OTHER, SELFPAY ==
[2023-01-12 13:03] VITALS: BP 121/85; PULSE 72; RESP 18; TEMP 37.1; O2SAT 98
[2023-01-12 13:19] LABS: Basophils % 0.5 %; Eosinophils # 0.2 10^3/uL (0.0-0.8); Eosinophils % 2.2 %; Hematocrit 41.4 % (37.0-47.0); Hemoglobin 14.2 g/dL (11.5-15.3); Lymphocytes # 1.6 10^3/uL (0.8-4.8); Lymphocytes % 21.8 %; Mean Corpuscular HGB Conc 34.3 g/dL (30.0-36.0); Mean Corpuscular Volume 84.7 fl (81-99); Mean Platelet Volume 9.5 fL (7.4-10.4); Monocytes # 0.4 10^3/uL (0.2-0.9); Nucleated Red Blood Cells % 0 %; Platelet Count 252 10^3/cmm (130-400); Red Blood Count 4.89 10^6/uL (4.1-5.3); Red Cell Distribution Width 12.6 % (12.1-15.1); White Blood Count 7.4 10^3/uL (4.0-10.0)
[2023-01-12 13:46] LABS: Alanine Aminotransferase 10 U/L (0-33); Albumin Level 4.6 g/dL (3.5-5.2); Alkaline Phosphatase 70 U/L (35-105); Aspartate Amino Transferase 12 U/L (0-32); Blood Urea Nitrogen 10 mg/dL (6-20); Calcium 9.1 mg/dL (8.5-10.5); Carbon Dioxide 23 mmol/L (22-29); Chloride 105 mmol/L (98-107); Glomerular Filtration Rate 113.8 mL/min (90-130); Glucose 101 mg/dL (65-115); Lactate Dehydrogenase 160 U/L (135-214); Osmolality Calculated 283 mOsm/kg (285-295); Sodium 137 mmol/L (136-145); Total Bilirubin 0.9 mg/dL (0.15-1.2); Total Protein 6.6 g/dL (6.6-8.7)
[2023-01-18 21:26] LABS: BCR ABL1 (IS) 0.057 (0.000); P210 BCR ALB1 DETECTED; P210 BCR ALB1 Yes Test Yes; Prior Results NG; Source blood
== END 2023-01-19 23:59 | disposition home or self-care (01) ==
PROVIDERS: Visit Provider Internal Medicine Medical Oncology
DX: Z53.9 Procedure and treatment not carried out, unspecified reason (principal)
CPT/HCPCS: 36415; 80053; 81206; 83615; 85025

== ENCOUNTER 2023-04-08 12:21 | Oncology outpatient (recurring) (ONCR) | payer OTHER, SELFPAY ==
--- NOTE | 2023-04-08 12:33 | ECG_ITS ---
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 Measurements Intervals [place] Rate: 78 P: 17 WI: 132 QRS: -14 QRSD: 80 T: 5 QT: 373 QTc: 425 Interpretive Statements SINUS RHYTHM No previous ECG available for comparison Electronically Signed On 04-16-2023 16:45:36 CDT by [place] Patten M.D. [email or web address]
== END 2023-04-21 23:59 | disposition home or self-care (01) ==
LOC: ONCMED 12:22
PROVIDERS: Visit Provider Internal Medicine Medical Oncology
DX: C92.10 Chronic myeloid leukemia, BCR/ABL-positive, not having achieved remission (principal)
CPT/HCPCS: 93005

== ENCOUNTER 2023-05-25 11:45 | Oncology outpatient (recurring) (ONCR) | payer OTHER, SELFPAY ==
[2023-05-25 12:11] VITALS: BP 111/70; PULSE 72; RESP 16; TEMP 36.9; O2SAT 98
[2023-05-25 12:28] LABS: Basophils % 0.3 %; Eosinophils # 0.1 10^3/uL (0.0-0.8); Eosinophils % 1.6 %; Hematocrit 40.8 % (36-47); Lymphocytes # 1.5 10^3/uL (0.8-4.8); Lymphocytes % 17.4 %; Mean Corpuscular HGB Conc 33.8 g/dL (30-55); Mean Corpuscular Hemoglobin 28.8 pg (27-33); Mean Platelet Volume 9.5 fL (7.4-10.4); Monocytes # 0.5 10^3/uL (0.2-0.9); Monocytes % 5.2 %; Neutrophils # 6.53 10^3/uL (1.8-7.7); Neutrophils % 74.9 %; Nucleated Red Blood Cells % 0 %; Platelet Count 283 10^3/cmm (157-399); Red Cell Distribution Width 12.3 % (12.1-15.1); White Blood Count 8.72 10^3/uL (3.29-11.43)
[2023-05-25 12:56] LABS: Alanine Aminotransferase 12 U/L (0-33); Albumin Level 4.5 g/dL (3.5-5.2); Alkaline Phosphatase 79 U/L (35-105); Anion Gap 14.8 (5-19); Aspartate Amino Transferase 15 U/L (0-32); Blood Urea Nitrogen 10 mg/dL (6-20); Calcium 8.9 mg/dL (8.5-10.5); Carbon Dioxide 23 mmol/L (22-29); Chloride 103 mmol/L (98-107); Globulin 2.3 g/dL (1.3-4.6); Glomerular Filtration Rate 95.2 mL/min (90-130); Glucose 105 mg/dL (65-115); Osmolality Calculated 283 mOsm/kg (285-295); Potassium 3.8 mmol/L (3.5-5.1); Sodium 137 mmol/L (136-145); Total Bilirubin 0.5 mg/dL (0.15-1.2); Total Protein 6.8 g/dL (6.6-8.7)
[2023-06-01 21:35] LABS: BCR ABL1 (IS) 0.019 (0.000); P210 BCR ALB1 DETECTED; P210 BCR ALB1 Yes Test Yes; Prior Results NG; Source Blood
== END 2023-06-21 23:59 | disposition home or self-care (01) ==
PROVIDERS: Internal Medicine Medical Oncology; Visit Provider Internal Medicine Medical Oncology
DX: C92.10 Chronic myeloid leukemia, BCR/ABL-positive, not having achieved remission (principal); D50.0 Iron deficiency anemia secondary to blood loss (chronic); R00.2 Palpitations; Z79.899 Other long term (current) drug therapy
CPT/HCPCS: 36415; 80053; 81206; 85025

== ENCOUNTER 2023-05-29 13:55 | Outpatient (CLI) | payer OTHER, SELFPAY ==
--- NOTE | 2023-05-29 14:15 | USCV_ITS ---
Kathe Sanchez Age: 37 Gender: F : 1985 Exam Date: 05/29/2023 14:27 Ordering Phys: Sandra Ontiveros APRN Technologist: CT Exam Location: [facility] [place]_ Indication: palpitations BP: 135 / 79 HR: 76 Rhythm: Sinus Technical Quality: Adequate MEASUREMENTS (Male / Female) Normal Values 2D ECHO LV Chamber Size 4.6 cm RV Chamber Size 3.3 cm LVOT Diameter 2.0 cm LV Ejection Fraction MOD 2C 62.3 % LV Ejection Fraction 2C AL 62.7 % LA Diameter 3.4 cm LA Width 3.6 cm LA Height 5.0 cm RA Width 3.7 cm RA Height 5.3 cm Aorta at Sinotubular Diameter 2.3 cm IVC Diameter 1.9 cm M-MODE Aortic Annulus Diameter 2.6 cm LA Ao Ratio MM 1.5 MV E Point Septal Separation 0.9 cm DOPPLER AV Peak Velocity 160.0 cm/s LVOT Peak Velocity 135.0 cm/s AV Area Cont Eq vti 2.6 cm squared AV Area Cont Eq pk 2.7 cm squared MV E' Velocity 14.0 cm/s TR Peak Velocity 117.0 cm/s TR Peak Gradient 5.5 mmHg TV Peak E Velocity 71.0 cm/s Right Atrial Pressure 3.0 mmHg Pulmonary Artery Systolic Pressu 8.5 mmHg PV Peak Velocity 111.0 cm/s FINDINGS Left Ventricle Normal left ventricular size, systolic function and wall thickness, with no regional wall motion abnormalities. Left ventricular ejection fraction is estimated at 65 %. Normal diastolic function. Right Ventricle Normal right ventricular size and systolic function. Right ventricular systolic pressure 8.5 mmHg. Right Atrium Normal right atrial size. Left Atrium Normal left atrial size. Mitral Valve Structurally normal mitral valve. No mitral valve stenosis. Trace mitral valve regurgitation. Aortic Valve Structurally normal trileaflet aortic valve. No aortic valve stenosis. No aortic valve regurgitation. Tricuspid Valve Structurally normal tricuspid valve. No tricuspid valve stenosis. Trace tricuspid valve regurgitation. Pulmonic Valve Structurally normal pulmonic valve. No pulmonary valve stenosis. Trace pulmonary valve regurgitation. Pericardium No pericardial effusion. Aorta Normal size aortic root and proximal ascending aorta. IVC Normal IVC dimension with >50% respiratory change of the inferior vena cava. CONCLUSIONS 1. Normal left ventricular size, systolic function and wall thickness, with no regional wall motion abnormalities. Left ventricular ejection fraction is estimated at 65 %. Normal diastolic function. 2. Normal right ventricular size and systolic function. 3. Trace mitral valve regurgitation. 4. No prior similar studies to compare. [place] Patten MD (Electronically Signed) Final Date: 05 June 2023 12:12 S
== END 2023-05-29 13:56 | disposition home or self-care (01) ==
LOC: RAD 13:56
PROVIDERS: Visit Provider Nurse Practitioner Family
DX: R00.2 Palpitations (principal)
CPT/HCPCS: 93306

== ENCOUNTER 2023-08-17 10:05 | Oncology outpatient (recurring) (ONCR) | payer OTHER, SELFPAY ==
[2023-08-17 10:44] LABS: Basophils % 0.7 %; Eosinophils # 0.1 10^3/uL (0.0-0.8); Eosinophils % 2.2 %; Hematocrit 39.9 % (36-47); Lymphocytes # 1.3 10^3/uL (0.8-4.8); Lymphocytes % 21.7 %; Mean Corpuscular HGB Conc 33.6 g/dL (30-55); Mean Corpuscular Hemoglobin 28.3 pg (27-33); Mean Corpuscular Volume 84.4 fl (85-98); Mean Platelet Volume 9.8 fL (7.4-10.4); Monocytes # 0.4 10^3/uL (0.2-0.9); Monocytes % 6.7 %; Neutrophils # 4.06 10^3/uL (1.8-7.7); Neutrophils % 68.2 %; Nucleated Red Blood Cells % 0 %; Platelet Count 256 10^3/cmm (157-399); Red Blood Count 4.73 10^6/uL (3.85-5.65); Red Cell Distribution Width 12.3 % (12.1-15.1); White Blood Count 5.95 10^3/uL (3.29-11.43)
[2023-08-17 11:01] LABS: Alanine Aminotransferase 12 U/L (0-33); Albumin Level 4.4 g/dL (3.5-5.2); Alkaline Phosphatase 85 U/L (35-105); Anion Gap 15.8 (5-19); Aspartate Amino Transferase 15 U/L (0-32); Blood Urea Nitrogen 11 mg/dL (6-20); Calcium 9.1 mg/dL (8.5-10.5); Carbon Dioxide 22 mmol/L (22-29); Chloride 102 mmol/L (98-107); Globulin 2.6 g/dL (1.3-4.6); Glomerular Filtration Rate 113.8 mL/min (90-130); Glucose 108 mg/dL (65-115); Lactate Dehydrogenase 160 U/L (135-214); Osmolality Calculated 282 mOsm/kg (285-295); Potassium 3.8 mmol/L (3.5-5.1); Sodium 136 mmol/L (136-145); Total Bilirubin 0.6 mg/dL (0.15-1.2)
[2023-08-26 01:20] LABS: BCR ABL1 (IS) 0.097 (0.000); P210 BCR ALB1 DETECTED; P210 BCR ALB1 Yes Test Yes; Prior Results NG; Source blood
== END 2023-08-20 23:59 | disposition home or self-care (01) ==
PROVIDERS: Visit Provider Internal Medicine Medical Oncology
DX: C92.10 Chronic myeloid leukemia, BCR/ABL-positive, not having achieved remission (principal)
CPT/HCPCS: 36415; 80053; 81206; 83615; 85025

== ENCOUNTER 2023-09-14 09:45 | Oncology outpatient (recurring) (ONCR) | payer OTHER, SELFPAY ==
[2023-09-14 09:58] LABS: Basophils % 0.6 %; Eosinophils # 0.1 10^3/uL (0.0-0.8); Eosinophils % 2.2 %; Hematocrit 42.8 % (36-47); Lymphocytes # 1.3 10^3/uL (0.8-4.8); Lymphocytes % 20.7 %; Mean Corpuscular HGB Conc 33.2 g/dL (30-55); Mean Corpuscular Hemoglobin 28.3 pg (27-33); Mean Corpuscular Volume 85.4 fl (85-98); Monocytes # 0.4 10^3/uL (0.2-0.9); Monocytes % 6.8 %; Neutrophils # 4.48 10^3/uL (1.8-7.7); Neutrophils % 69.2 %; Nucleated Red Blood Cells % 0 %; Platelet Count 264 10^3/cmm (157-399); Red Blood Count 5.01 10^6/uL (3.85-5.65); Red Cell Distribution Width 12.6 % (12.1-15.1); White Blood Count 6.47 10^3/uL (3.29-11.43)
[2023-09-14 10:19] LABS: Alanine Aminotransferase 14 U/L (0-33); Albumin Level 4.8 g/dL (3.5-5.2); Alkaline Phosphatase 104 U/L (35-105); Aspartate Amino Transferase 15 U/L (0-32); Blood Urea Nitrogen 11 mg/dL (6-20); Calcium 9.7 mg/dL (8.5-10.5); Carbon Dioxide 27 mmol/L (22-29); Chloride 105 mmol/L (98-107); Creatinine Clr Calc Pharmacy 116.3762; Globulin 2.3 g/dL (1.3-4.6); Glomerular Filtration Rate 113.8 mL/min (90-130); Glucose 98 mg/dL (65-115); Osmolality Calculated 295 mOsm/kg (285-295); Sodium 143 mmol/L (136-145); Total Bilirubin 0.5 mg/dL (0.15-1.2); Total Protein 7.1 g/dL (6.6-8.7)
== END 2023-09-20 23:59 | disposition home or self-care (01) ==
PROVIDERS: Nurse Practitioner Family; Visit Provider Internal Medicine Medical Oncology
DX: Z53.9 Procedure and treatment not carried out, unspecified reason (principal); D50.0 Iron deficiency anemia secondary to blood loss (chronic)
CPT/HCPCS: 36415; 80053; 85025

== ENCOUNTER 2023-10-08 13:41 | Oncology outpatient (recurring) (ONCR) | payer OTHER, SELFPAY ==
[2023-10-08 14:05] LABS: Basophils % 0.4 %; Eosinophils # 0.2 10^3/uL (0.0-0.8); Eosinophils % 2.7 %; Hematocrit 39.2 % (36-47); Lymphocytes # 1.2 10^3/uL (0.8-4.8); Lymphocytes % 18.2 %; Mean Corpuscular HGB Conc 34.4 g/dL (30-55); Mean Corpuscular Hemoglobin 28.4 pg (27-33); Mean Corpuscular Volume 82.4 fl (85-98); Mean Platelet Volume 10.1 fL (7.4-10.4); Monocytes # 0.3 10^3/uL (0.2-0.9); Neutrophils # 4.96 10^3/uL (1.8-7.7); Neutrophils % 73.4 %; Nucleated Red Blood Cells % 0 %; Platelet Count 272 10^3/cmm (157-399); Red Blood Count 4.76 10^6/uL (3.85-5.65); Red Cell Distribution Width 12.7 % (12.1-15.1); White Blood Count 6.76 10^3/uL (3.29-11.43)
[2023-10-08 14:27] LABS: Alanine Aminotransferase 13 U/L (0-33); Albumin Level 4.4 g/dL (3.5-5.2); Alkaline Phosphatase 105 U/L (35-105); Anion Gap 13.8 (5-19); Aspartate Amino Transferase 21 U/L (0-32); Blood Urea Nitrogen 14 mg/dL (6-20); Calcium 9.1 mg/dL (8.5-10.5); Carbon Dioxide 23 mmol/L (22-29); Chloride 105 mmol/L (98-107); Globulin 2.7 g/dL (1.3-4.6); Glomerular Filtration Rate 95.2 mL/min (90-130); Glucose 135 mg/dL (65-115); Osmolality Calculated 289 mOsm/kg (285-295); Potassium 3.8 mmol/L (3.5-5.1); Sodium 138 mmol/L (136-145); Total Bilirubin 0.4 mg/dL (0.15-1.2); Total Protein 7.1 g/dL (6.6-8.7)
== END 2023-10-20 23:59 | disposition home or self-care (01) ==
PROVIDERS: Nurse Practitioner Family; Visit Provider Internal Medicine Medical Oncology
DX: Z79.899 Other long term (current) drug therapy (principal); D50.0 Iron deficiency anemia secondary to blood loss (chronic); C92.10 Chronic myeloid leukemia, BCR/ABL-positive, not having achieved remission
CPT/HCPCS: 36415; 80053; 85025

== ENCOUNTER → 2023-11-09 15:58 | Outpatient (BNVA) | payer OTHER, SELFPAY | PROVIDERS: Visit Provider Obstetrics & Gynecology | DX: E34.9 Endocrine disorder, unspecified (principal) | CPT/HCPCS: 83001; 84443 ==

== ENCOUNTER 2023-11-19 13:30 | Oncology outpatient (recurring) (ONCR) | payer OTHER, SELFPAY ==
[2023-10-29 13:38] LABS: Basophils % 0.4 %; Eosinophils # 0.2 10^3/uL (0.0-0.8); Eosinophils % 2.5 %; Lymphocytes # 1.2 10^3/uL (0.8-4.8); Lymphocytes % 16.4 %; Mean Corpuscular HGB Conc 34.3 g/dL (30-55); Mean Corpuscular Hemoglobin 28.4 pg (27-33); Mean Platelet Volume 9.7 fL (7.4-10.4); Monocytes # 0.4 10^3/uL (0.2-0.9); Monocytes % 5.9 %; Neutrophils # 5.57 10^3/uL (1.8-7.7); Neutrophils % 74.4 %; Nucleated Red Blood Cells % 0 %; Platelet Count 278 10^3/cmm (157-399); Red Blood Count 4.82 10^6/uL (3.85-5.65); Red Cell Distribution Width 12.9 % (12.1-15.1); White Blood Count 7.49 10^3/uL (3.29-11.43)
[2023-10-29 13:56] LABS: Alanine Aminotransferase 13 U/L (0-33); Albumin Level 4.5 g/dL (3.5-5.2); Alkaline Phosphatase 93 U/L (35-105); Aspartate Amino Transferase 14 U/L (0-32); Blood Urea Nitrogen 10 mg/dL (6-20); Calcium 8.5 mg/dL (8.5-10.5); Carbon Dioxide 25 mmol/L (22-29); Chloride 106 mmol/L (98-107); Globulin 2.6 g/dL (1.3-4.6); Glomerular Filtration Rate 113.8 mL/min (90-130); Glucose 115 mg/dL (65-115); Lactate Dehydrogenase 149 U/L (135-214); Osmolality Calculated 290 mOsm/kg (285-295); Sodium 140 mmol/L (136-145); Total Bilirubin 0.5 mg/dL (0.15-1.2); Total Protein 7.1 g/dL (6.6-8.7)
[2023-11-05 23:34] LABS: BCR ABL1 (IS) 0.841 (0.000); P210 BCR ALB1 DETECTED; P210 BCR ALB1 Yes Test Yes; Prior Results NG; Source blood
[2023-11-19 08:37] VITALS: BP 116/71; PULSE 71; RESP 17; TEMP 37.2; O2SAT 99
[2023-11-19 08:38] VITALS: BP 119/71; PULSE 71; RESP 18; TEMP 37.2; O2SAT 98
[2023-11-19 08:45] LABS: Basophils % 0.4 %; Eosinophils # 0.2 10^3/uL (0.0-0.8); Eosinophils % 2.9 %; Hematocrit 42.3 % (36-47); Lymphocytes % 18.9 %; Mean Corpuscular HGB Conc 33.3 g/dL (30-55); Mean Corpuscular Hemoglobin 28.1 pg (27-33); Mean Corpuscular Volume 84.4 fl (85-98); Mean Platelet Volume 9.6 fL (7.4-10.4); Monocytes # 0.3 10^3/uL (0.2-0.9); Monocytes % 5.9 %; Neutrophils % 71.4 %; Nucleated Red Blood Cells % 0 %; Platelet Count 277 10^3/cmm (157-399); Red Blood Count 5.01 10^6/uL (3.85-5.65); White Blood Count 5.46 10^3/uL (3.29-11.43)
[2023-11-19 09:03] LABS: Alanine Aminotransferase 24 U/L (0-33); Albumin Level 4.5 g/dL (3.5-5.2); Alkaline Phosphatase 90 U/L (35-105); Aspartate Amino Transferase 18 U/L (0-32); Blood Urea Nitrogen 13 mg/dL (6-20); Calcium 9.2 mg/dL (8.5-10.5); Carbon Dioxide 23 mmol/L (22-29); Chloride 103 mmol/L (98-107); Globulin 2.7 g/dL (1.3-4.6); Glomerular Filtration Rate 95.2 mL/min (90-130); Glucose 117 mg/dL (65-115); Osmolality Calculated 285 mOsm/kg (285-295); Sodium 137 mmol/L (136-145); Total Bilirubin 0.6 mg/dL (0.15-1.2); Total Protein 7.2 g/dL (6.6-8.7)
--- NOTE | 2023-11-19 13:30 | MM_ITS ---
WS: [id number] BILATERAL SCREENING DIGITAL TOMOSYNTHESIS MAMMOGRAM WITH CAD HISTORY: Z12.31 - Encounter for screening mammogram for malignant ... COMPARISON: None available. Bilateral CC and MLO views with tomosynthesis and synthetic mammography submitted. Computer aided det ection analyzed. Breast composition: There are scattered areas of fibroglandular density. No suspicious masses, microc alcifications or architectural distortion. MM/[place] [id number] IMPRESSION: BI-RADS: 1-Negative FOLLOW UP: 1 Year Follow-up
== END 2023-11-19 23:59 | disposition home or self-care (01) ==
LOC: ONCMED 12-31 09:20
PROVIDERS: Nurse Practitioner Family; PCP Internal Medicine Medical Oncology; Visit Provider Internal Medicine Medical Oncology
DX: Z53.9 Procedure and treatment not carried out, unspecified reason (principal); D50.0 Iron deficiency anemia secondary to blood loss (chronic)
CPT/HCPCS: 36415; 77063; 77067; 80053; 81206; 83615; 85025

== ENCOUNTER 2024-01-01 08:57 | Oncology outpatient (recurring) (ONCR) | payer OTHER, SELFPAY ==
[2023-12-31 15:22] LABS: Basophils % 0.4 %; Eosinophils # 0.2 10^3/uL (0.0-0.8); Hematocrit 38.8 % (36-47); Lymphocytes # 1.8 10^3/uL (0.8-4.8); Lymphocytes % 22.6 %; Mean Corpuscular HGB Conc 33.5 g/dL (30-55); Mean Corpuscular Hemoglobin 28.4 pg (27-33); Mean Corpuscular Volume 84.9 fl (85-98); Mean Platelet Volume 9.5 fL (7.4-10.4); Monocytes # 0.3 10^3/uL (0.2-0.9); Monocytes % 4.1 %; Neutrophils # 5.67 10^3/uL (1.8-7.7); Neutrophils % 70.5 %; Nucleated Red Blood Cells % 0 %; Platelet Count 261 10^3/cmm (157-399); Red Blood Count 4.57 10^6/uL (3.85-5.65); Red Cell Distribution Width 13.4 % (12.1-15.1); White Blood Count 8.04 10^3/uL (3.29-11.43)
[2023-12-31 15:43] LABS: Alanine Aminotransferase 19 U/L (0-33); Albumin Level 4.7 g/dL (3.5-5.2); Alkaline Phosphatase 88 U/L (35-105); Anion Gap 15.6 (5-19); Aspartate Amino Transferase 18 U/L (0-32); Blood Urea Nitrogen 18 mg/dL (6-20); Calcium 8.9 mg/dL (8.5-10.5); Carbon Dioxide 23 mmol/L (22-29); Chloride 102 mmol/L (98-107); Globulin 2.5 g/dL (1.3-4.6); Glomerular Filtration Rate 113.1 mL/min (90-130); Glucose 92 mg/dL (65-115); Osmolality Calculated 286 mOsm/kg (285-295); Potassium 3.6 mmol/L (3.5-5.1); Sodium 137 mmol/L (136-145); Total Bilirubin 0.4 mg/dL (0.15-1.2); Total Protein 7.2 g/dL (6.6-8.7)
[2024-01-06 20:10] LABS: BCR ABL1 (IS) 0.026 (0.000); P210 BCR ALB1 DETECTED; P210 BCR ALB1 Yes Test Yes; Prior Results NG; Source blood
== END 2024-01-20 23:59 | disposition home or self-care (01) ==
PROVIDERS: Nurse Practitioner Family; PCP Internal Medicine Medical Oncology; Visit Provider Internal Medicine Medical Oncology
DX: Z53.9 Procedure and treatment not carried out, unspecified reason (principal)
CPT/HCPCS: 36415; 80053; 81206; 85025

== ENCOUNTER 2024-01-27 07:25 | Oncology outpatient (recurring) (ONCR) | payer OTHER, SELFPAY ==
[2024-01-27 07:57] LABS: Basophils % 0.6 %; Eosinophils # 0.2 10^3/uL (0.0-0.8); Eosinophils % 3.1 %; Hematocrit 41.7 % (36-47); Lymphocytes # 1.1 10^3/uL (0.8-4.8); Lymphocytes % 21.1 %; Mean Corpuscular HGB Conc 33.3 g/dL (30-55); Mean Corpuscular Hemoglobin 28.8 pg (27-33); Mean Corpuscular Volume 86.3 fl (85-98); Mean Platelet Volume 9.6 fL (7.4-10.4); Monocytes # 0.3 10^3/uL (0.2-0.9); Monocytes % 6.3 %; Neutrophils # 3.58 10^3/uL (1.8-7.7); Neutrophils % 68.5 %; Nucleated Red Blood Cells % 0 %; Platelet Count 253 10^3/cmm (157-399); Red Blood Count 4.83 10^6/uL (3.85-5.65); Red Cell Distribution Width 13.4 % (12.1-15.1); White Blood Count 5.22 10^3/uL (3.29-11.43)
[2024-01-27 08:13] LABS: Alanine Aminotransferase 12 U/L (0-33); Albumin Level 4.7 g/dL (3.5-5.2); Alkaline Phosphatase 80 U/L (35-105); Anion Gap 15.2 (5-19); Aspartate Amino Transferase 13 U/L (0-32); Blood Urea Nitrogen 12 mg/dL (6-20); Carbon Dioxide 22 mmol/L (22-29); Chloride 106 mmol/L (98-107); Globulin 2.6 g/dL (1.3-4.6); Glomerular Filtration Rate 113.1 mL/min (90-130); Glucose 94 mg/dL (65-115); Osmolality Calculated 288 mOsm/kg (285-295); Potassium 4.2 mmol/L (3.5-5.1); Sodium 139 mmol/L (136-145); Total Bilirubin 0.7 mg/dL (0.15-1.2); Total Protein 7.3 g/dL (6.6-8.7)
[2024-01-27 09:57] LABS: Erythrocyte Sedimentation Rate 1 mm/hr (0-15)
[2024-02-02 16:54] LABS: BCR ABL1 (IS) 0.015 (0.000); P210 BCR ALB1 DETECTED; P210 BCR ALB1 Yes Test Yes; Prior Results NG; Source blood
== END 2024-02-20 23:55 | disposition home or self-care (01) ==
PROVIDERS: Nurse Practitioner Family; PCP Internal Medicine Medical Oncology; Visit Provider Internal Medicine Medical Oncology
DX: C92.10 Chronic myeloid leukemia, BCR/ABL-positive, not having achieved remission
CPT/HCPCS: 36415; 80053; 81206; 85025; 85651; 86140

== ENCOUNTER 2024-04-07 10:37 | Oncology outpatient (recurring) (ONCR) | payer OTHER, SELFPAY ==
[2024-03-31 11:26] LABS: Basophils % 0.6 %; Eosinophils # 0.1 10^3/uL (0.0-0.8); Hematocrit 41.9 % (36-47); Lymphocytes # 1.5 10^3/uL (0.8-4.8); Lymphocytes % 23.2 %; Mean Corpuscular HGB Conc 33.4 g/dL (30-55); Mean Corpuscular Hemoglobin 28.5 pg (27-33); Mean Corpuscular Volume 85.3 fl (85-98); Mean Platelet Volume 9.4 fL (7.4-10.4); Monocytes # 0.4 10^3/uL (0.2-0.9); Monocytes % 5.7 %; Neutrophils # 4.43 10^3/uL (1.8-7.7); Neutrophils % 68.2 %; Nucleated Red Blood Cells % 0 %; Platelet Count 280 10^3/cmm (157-399); Red Blood Count 4.91 10^6/uL (3.85-5.65); Red Cell Distribution Width 12.7 % (12.1-15.1)
[2024-03-31 11:42] LABS: Alanine Aminotransferase 11 U/L (0-33); Albumin Level 4.5 g/dL (3.5-5.2); Alkaline Phosphatase 81 U/L (35-105); Aspartate Amino Transferase 16 U/L (0-32); Blood Urea Nitrogen 13 mg/dL (6-20); Calcium 8.8 mg/dL (8.5-10.5); Carbon Dioxide 25 mmol/L (22-29); Chloride 105 mmol/L (98-107); Globulin 2.5 g/dL (1.3-4.6); Glomerular Filtration Rate 113.1 mL/min (90-130); Glucose 102 mg/dL (65-115); Osmolality Calculated 288 mOsm/kg (285-295); Sodium 139 mmol/L (136-145); Total Bilirubin 0.5 mg/dL (0.15-1.2)
[2024-03-31 13:34] LABS: Anion Gap 13.1 (5-19); Lactate Dehydrogenase 172 U/L (135-214); Potassium 4.1 mmol/L (3.5-5.1)
[2024-04-06 18:50] LABS: BCR ABL1 (IS) 0.028 (0.000); P210 BCR ALB1 DETECTED; P210 BCR ALB1 Yes Test Yes; Prior Results BLOOD; Source blood
== END 2024-04-21 23:59 | disposition home or self-care (01) ==
PROVIDERS: PCP Internal Medicine Medical Oncology; Visit Provider Internal Medicine Hematology & Oncology
DX: C92.10 Chronic myeloid leukemia, BCR/ABL-positive, not having achieved remission (principal)
CPT/HCPCS: 36415; 80053; 81206; 83615; 85025

== ENCOUNTER 2024-05-12 11:15 | Oncology outpatient (recurring) (ONCR) | payer OTHER, SELFPAY ==
[2024-04-28 16:40] LABS: Basophils % 0.4 %; Eosinophils # 0.2 10^3/uL (0.0-0.8); Eosinophils % 2.9 %; Hematocrit 41.4 % (36-47); Lymphocytes # 1.9 10^3/uL (0.8-4.8); Mean Corpuscular HGB Conc 34.1 g/dL (30-55); Mean Corpuscular Hemoglobin 28.6 pg (27-33); Mean Platelet Volume 9.5 fL (7.4-10.4); Monocytes # 0.4 10^3/uL (0.2-0.9); Monocytes % 5.7 %; Neutrophils # 4.63 10^3/uL (1.8-7.7); Neutrophils % 64.7 %; Nucleated Red Blood Cells % 0 %; Platelet Count 308 10^3/cmm (157-399); Red Blood Count 4.93 10^6/uL (3.85-5.65); Red Cell Distribution Width 12.3 % (12.1-15.1); White Blood Count 7.16 10^3/uL (3.29-11.43)
[2024-04-28 17:05] LABS: Alanine Aminotransferase 14 U/L (0-33); Albumin Level 4.9 g/dL (3.5-5.2); Alkaline Phosphatase 100 U/L (35-105); Anion Gap 13.7 (5-19); Aspartate Amino Transferase 16 U/L (0-32); Blood Urea Nitrogen 15 mg/dL (6-20); Calcium 9.7 mg/dL (8.5-10.5); Carbon Dioxide 27 mmol/L (22-29); Chloride 103 mmol/L (98-107); Creatinine Clr Calc Pharmacy 99.1189; Ferritin 201 ng/mL (15-150); Globulin 2.2 g/dL (1.3-4.6); Glomerular Filtration Rate 94.7 mL/min (90-130); Glucose 92 mg/dL (65-115); Iron 54 ug/dL (37-145); Magnesium 2.2 mg/dL (1.7-2.3); Osmolality Calculated 290 mOsm/kg (285-295); Phosphorus 3.1 mg/dL (2.5-4.5); Potassium 3.7 mmol/L (3.5-5.1); Sodium 140 mmol/L (136-145); Total Bilirubin 0.4 mg/dL (0.15-1.2); Total Iron Binding Capacity 257 mcg/dl; Total Protein 7.1 g/dL (6.6-8.7); Unsaturated Iron Binding 203 ug/dL (112-347); Uric Acid 5.1 mg/dL (2.4-5.7)
[2024-04-28 19:58] LABS: Lactate Dehydrogenase 188 U/L (135-214)
[2024-05-04 22:00] LABS: BCR ABL1 (IS) 0.537 (0.000); P210 BCR ALB1 DETECTED; P210 BCR ALB1 Yes Test Yes; Prior Results NG; Source blood
[2024-05-12 11:41] LABS: Basophils % 0.6 %; Eosinophils # 0.2 10^3/uL (0.0-0.8); Eosinophils % 3.4 %; Hematocrit 39.7 % (36-47); Lymphocytes # 1.7 10^3/uL (0.8-4.8); Mean Corpuscular HGB Conc 33.5 g/dL (30-55); Mean Corpuscular Hemoglobin 28.3 pg (27-33); Mean Corpuscular Volume 84.5 fl (85-98); Mean Platelet Volume 9.5 fL (7.4-10.4); Monocytes # 0.3 10^3/uL (0.2-0.9); Monocytes % 5.1 %; Neutrophils # 4.14 10^3/uL (1.8-7.7); Neutrophils % 64.6 %; Nucleated Red Blood Cells % 0 %; Platelet Count 298 10^3/cmm (157-399); Red Cell Distribution Width 12.7 % (12.1-15.1); White Blood Count 6.42 10^3/uL (3.29-11.43)
[2024-05-12 12:00] LABS: Alanine Aminotransferase 19 U/L (0-33); Albumin Level 4.9 g/dL (3.5-5.2); Alkaline Phosphatase 86 U/L (35-105); Anion Gap 14.9 (5-19); Aspartate Amino Transferase 21 U/L (0-32); Blood Urea Nitrogen 13 mg/dL (6-20); Calcium 9.4 mg/dL (8.5-10.5); Carbon Dioxide 24 mmol/L (22-29); Chloride 101 mmol/L (98-107); Creatinine Clr Calc Pharmacy 98.5225; Globulin 2.5 g/dL (1.3-4.6); Glomerular Filtration Rate 94.7 mL/min (90-130); Glucose 122 mg/dL (65-115); Lactate Dehydrogenase 188 U/L (135-214); Magnesium 2.1 mg/dL (1.7-2.3); Osmolality Calculated 283 mOsm/kg (285-295); Phosphorus 3.5 mg/dL (2.5-4.5); Potassium 3.9 mmol/L (3.5-5.1); Sodium 136 mmol/L (136-145); Total Bilirubin 0.4 mg/dL (0.15-1.2); Total Protein 7.4 g/dL (6.6-8.7); Uric Acid 4.2 mg/dL (2.4-5.7)
== END 2024-05-21 23:59 | disposition home or self-care (01) ==
PROVIDERS: Internal Medicine; Internal Medicine Medical Oncology; PCP Internal Medicine Medical Oncology; Visit Provider Internal Medicine Hematology & Oncology
DX: C92.10 Chronic myeloid leukemia, BCR/ABL-positive, not having achieved remission; D50.0 Iron deficiency anemia secondary to blood loss (chronic); Z53.9 Procedure and treatment not carried out, unspecified reason
CPT/HCPCS: 36415; 80053; 81206; 82728; 83010; 83540; 83550; 83615; 83735; 84100; 84550; 85025; 88374

== ENCOUNTER 2024-06-09 08:34 | Oncology outpatient (recurring) (ONCR) | payer OTHER, SELFPAY ==
[2024-06-09 09:21] LABS: Basophils % 0.6 %; Eosinophils # 0.2 10^3/uL (0.0-0.8); Eosinophils % 2.3 %; Hematocrit 40.4 % (36-47); Lymphocytes # 1.7 10^3/uL (0.8-4.8); Lymphocytes % 23.5 %; Mean Corpuscular HGB Conc 33.4 g/dL (30-55); Mean Corpuscular Hemoglobin 28.4 pg (27-33); Mean Corpuscular Volume 85.1 fl (85-98); Mean Platelet Volume 9.6 fL (7.4-10.4); Monocytes # 0.4 10^3/uL (0.2-0.9); Monocytes % 5.6 %; Neutrophils # 4.74 10^3/uL (1.8-7.7); Neutrophils % 67.4 %; Nucleated Red Blood Cells % 0 %; Platelet Count 257 10^3/cmm (157-399); Red Blood Count 4.75 10^6/uL (3.85-5.65); Red Cell Distribution Width 13.2 % (12.1-15.1); White Blood Count 7.02 10^3/uL (3.29-11.43)
[2024-06-09 09:48] LABS: Alanine Aminotransferase 18 U/L (0-33); Albumin Level 4.6 g/dL (3.5-5.2); Alkaline Phosphatase 86 U/L (35-105); Aspartate Amino Transferase 20 U/L (0-32); Blood Urea Nitrogen 12 mg/dL (6-20); Calcium 9.2 mg/dL (8.5-10.5); Carbon Dioxide 25 mmol/L (22-29); Chloride 101 mmol/L (98-107); Creatinine Clr Calc Pharmacy 112.4833; Globulin 2.4 g/dL (1.3-4.6); Glomerular Filtration Rate 113.1 mL/min (90-130); Glucose 108 mg/dL (65-115); Lactate Dehydrogenase 189 U/L (135-214); Magnesium 2.1 mg/dL (1.7-2.3); Osmolality Calculated 284 mOsm/kg (285-295); Phosphorus 2.9 mg/dL (2.5-4.5); Sodium 137 mmol/L (136-145); Total Bilirubin 0.6 mg/dL (0.15-1.2); Uric Acid 4.1 mg/dL (2.4-5.7)
== END 2024-06-21 23:59 | disposition home or self-care (01) ==
PROVIDERS: Visit Provider Internal Medicine
DX: C92.10 Chronic myeloid leukemia, BCR/ABL-positive, not having achieved remission (principal); Z53.9 Procedure and treatment not carried out, unspecified reason
CPT/HCPCS: 36415; 80053; 83615; 83735; 84100; 84550; 85025

== ENCOUNTER 2024-07-14 14:53 | Oncology outpatient (recurring) (ONCR) | payer OTHER, SELFPAY ==
[2024-07-07 14:15] LABS: Basophils % 0.4 %; Eosinophils # 0.2 10^3/uL (0.0-0.8); Eosinophils % 2.4 %; Hematocrit 39.9 % (36-47); Lymphocytes # 1.4 10^3/uL (0.8-4.8); Lymphocytes % 18.2 %; Mean Corpuscular HGB Conc 33.8 g/dL (30-55); Mean Corpuscular Hemoglobin 28.5 pg (27-33); Mean Corpuscular Volume 84.2 fl (85-98); Mean Platelet Volume 9.7 fL (7.4-10.4); Monocytes # 0.4 10^3/uL (0.2-0.9); Monocytes % 4.7 %; Nucleated Red Blood Cells % 0 %; Platelet Count 277 10^3/cmm (157-399); Red Blood Count 4.74 10^6/uL (3.85-5.65); Red Cell Distribution Width 13.2 % (12.1-15.1); White Blood Count 7.84 10^3/uL (3.29-11.43)
[2024-07-07 14:34] LABS: Alanine Aminotransferase 18 U/L (0-33); Albumin Level 4.7 g/dL (3.5-5.2); Alkaline Phosphatase 97 U/L (35-105); Anion Gap 17.7 (5-19); Aspartate Amino Transferase 18 U/L (0-32); Blood Urea Nitrogen 8 mg/dL (6-20); Calcium 9.6 mg/dL (8.5-10.5); Carbon Dioxide 24 mmol/L (22-29); Chloride 97 mmol/L (98-107); Globulin 2.6 g/dL (1.3-4.6); Glomerular Filtration Rate 94.7 mL/min (90-130); Glucose 89 mg/dL (65-115); Lactate Dehydrogenase 170 U/L (135-214); Magnesium 2.1 mg/dL (1.7-2.3); Osmolality Calculated 278 mOsm/kg (285-295); Phosphorus 2.8 mg/dL (2.5-4.5); Potassium 3.7 mmol/L (3.5-5.1); Sodium 135 mmol/L (136-145); Total Bilirubin 0.4 mg/dL (0.15-1.2); Total Protein 7.3 g/dL (6.6-8.7)
[2024-07-11 21:59] LABS: BCR ABL1 (IS) 0.149 (0.000); P210 BCR ALB1 DETECTED; P210 BCR ALB1 Yes Test Yes; Prior Results NG; Source blood
== END 2024-07-22 23:59 | disposition home or self-care (01) ==
PROVIDERS: Visit Provider Internal Medicine
DX: Z53.9 Procedure and treatment not carried out, unspecified reason (principal)
CPT/HCPCS: 36415; 80053; 81206; 83615; 83735; 84100; 85025; 88374

== ENCOUNTER 2024-08-11 13:54 | Oncology outpatient (recurring) (ONCR) | payer OTHER, SELFPAY ==
[2024-08-11 14:45] LABS: Basophils % 0.6 %; Eosinophils # 0.2 10^3/uL (0.0-0.8); Eosinophils % 2.7 %; Hematocrit 39.6 % (36-47); Lymphocytes # 1.8 10^3/uL (0.8-4.8); Lymphocytes % 27.2 %; Mean Corpuscular HGB Conc 33.8 g/dL (30-55); Mean Corpuscular Hemoglobin 28.3 pg (27-33); Mean Corpuscular Volume 83.5 fl (85-98); Mean Platelet Volume 9.4 fL (7.4-10.4); Monocytes # 0.4 10^3/uL (0.2-0.9); Monocytes % 5.2 %; Neutrophils # 4.33 10^3/uL (1.8-7.7); Nucleated Red Blood Cells % 0 %; Platelet Count 255 10^3/cmm (157-399); Red Blood Count 4.74 10^6/uL (3.85-5.65); Red Cell Distribution Width 13.1 % (12.1-15.1); White Blood Count 6.76 10^3/uL (3.29-11.43)
[2024-08-11 14:48] LABS: Erythrocyte Sedimentation Rate 1 mm/hr (0-15)
[2024-08-11 15:00] LABS: Alanine Aminotransferase 11 U/L (0-33); Albumin Level 4.9 g/dL (3.5-5.2); Alkaline Phosphatase 92 U/L (35-105); Anion Gap 13.8 (5-19); Aspartate Amino Transferase 15 U/L (0-32); Blood Urea Nitrogen 12 mg/dL (6-20); Calcium 9.8 mg/dL (8.5-10.5); Carbon Dioxide 24 mmol/L (22-29); Chloride 106 mmol/L (98-107); Creatinine Clr Calc Pharmacy 115.7549; Globulin 2.6 g/dL (1.3-4.6); Glomerular Filtration Rate 113.1 mL/min (90-130); Glucose 90 mg/dL (65-115); Lactate Dehydrogenase 174 U/L (135-214); Magnesium 2.1 mg/dL (1.7-2.3); Osmolality Calculated 289 mOsm/kg (285-295); Phosphorus 3.3 mg/dL (2.5-4.5); Potassium 3.8 mmol/L (3.5-5.1); Sodium 140 mmol/L (136-145); Total Bilirubin 0.3 mg/dL (0.15-1.2); Total Protein 7.5 g/dL (6.6-8.7); Uric Acid 3.9 mg/dL (2.4-5.7)
== END 2024-08-19 23:59 | disposition home or self-care (01) ==
PROVIDERS: Visit Provider Internal Medicine
DX: C92.10 Chronic myeloid leukemia, BCR/ABL-positive, not having achieved remission (principal)
CPT/HCPCS: 36415; 80053; 83615; 83735; 84100; 84550; 85025; 85651; 86140

== ENCOUNTER 2024-09-07 13:32 | Oncology outpatient (recurring) (ONCR) | payer OTHER, SELFPAY ==
[2024-09-07 13:56] LABS: Basophils # 0.1 10^3/uL (0.0-0.1); Basophils % 0.7 %; Eosinophils # 0.2 10^3/uL (0.0-0.8); Eosinophils % 2.9 %; Hematocrit 39.7 % (36-47); Lymphocytes # 1.8 10^3/uL (0.8-4.8); Lymphocytes % 24.1 %; Mean Corpuscular HGB Conc 33.8 g/dL (30-55); Mean Corpuscular Hemoglobin 28.4 pg (27-33); Mean Corpuscular Volume 84.1 fl (85-98); Mean Platelet Volume 9.7 fL (7.4-10.4); Monocytes # 0.5 10^3/uL (0.2-0.9); Neutrophils # 4.73 10^3/uL (1.8-7.7); Neutrophils % 64.9 %; Nucleated Red Blood Cells % 0 %; Platelet Count 257 10^3/cmm (157-399); Red Blood Count 4.72 10^6/uL (3.85-5.65); White Blood Count 7.29 10^3/uL (3.29-11.43)
[2024-09-07 14:15] LABS: Erythrocyte Sedimentation Rate 2 mm/hr (0-15)
[2024-09-07 14:16] LABS: Alanine Aminotransferase 15 U/L (0-33); Albumin Level 4.9 g/dL (3.5-5.2); Alkaline Phosphatase 101 U/L (35-105); Aspartate Amino Transferase 17 U/L (0-32); Blood Urea Nitrogen 18 mg/dL (6-20); Calcium 9.6 mg/dL (8.5-10.5); Carbon Dioxide 23 mmol/L (22-29); Chloride 104 mmol/L (98-107); Globulin 2.5 g/dL (1.3-4.6); Glomerular Filtration Rate 113.1 mL/min (90-130); Glucose 92 mg/dL (65-115); Lactate Dehydrogenase 175 U/L (135-214); Magnesium 2.1 mg/dL (1.7-2.3); Osmolality Calculated 292 mOsm/kg (285-295); Phosphorus 3.1 mg/dL (2.5-4.5); Sodium 140 mmol/L (136-145); Total Bilirubin 0.3 mg/dL (0.15-1.2); Total Protein 7.4 g/dL (6.6-8.7); Uric Acid 3.9 mg/dL (2.4-5.7)
[2024-09-10 07:00] LABS: BCR ABL1 (IS) 0.015 (0.000); P210 BCR ALB1 DETECTED; P210 BCR ALB1 Yes Test Yes; Prior Results NG; Source blood
== END 2024-09-19 23:59 | disposition home or self-care (01) ==
PROVIDERS: Visit Provider Internal Medicine
DX: C92.10 Chronic myeloid leukemia, BCR/ABL-positive, not having achieved remission (principal)
CPT/HCPCS: 36415; 80053; 81206; 83615; 83735; 84100; 84550; 85025; 85651; 86140

== ENCOUNTER 2024-11-15 10:06 | Oncology outpatient (recurring) (ONCR) | payer OTHER, SELFPAY ==
[2024-11-07 15:57] LABS: Reticulocyte % 2.5 % (0.5-2.0)
[2024-11-07 16:50] LABS: Alanine Aminotransferase 19 U/L (0-33); Albumin Level 4.9 g/dL (3.5-5.2); Alkaline Phosphatase 80 U/L (35-105); Blood Urea Nitrogen 15 mg/dL (6-20); Calcium 9.7 mg/dL (8.5-10.5); Carbon Dioxide 20 mmol/L (22-29); Chloride 103 mmol/L (98-107); Globulin 2.8 g/dL (1.3-4.6); Glomerular Filtration Rate 94.7 mL/min (90-130); Glucose 84 mg/dL (65-115); Osmolality Calculated 288 mOsm/kg (285-295); Sodium 139 mmol/L (136-145); Total Bilirubin 0.4 mg/dL (0.15-1.2); Total Protein 7.7 g/dL (6.6-8.7); Uric Acid 4.1 mg/dL (2.4-5.7)
[2024-11-07 16:57] LABS: Aspartate Amino Transferase 22 U/L (0-32); Lactate Dehydrogenase 254 U/L (135-214)
[2024-11-07 17:44] LABS: Basophils % 0.5 %; Eosinophils # 0.2 10^3/uL (0.0-0.8); Eosinophils % 2.6 %; Hematocrit 38.5 % (36-47); Lymphocytes # 1.9 10^3/uL (0.8-4.8); Lymphocytes % 23.5 %; Mean Corpuscular HGB Conc 33.5 g/dL (30-55); Mean Corpuscular Hemoglobin 28.8 pg (27-33); Mean Corpuscular Volume 85.9 fl (85-98); Monocytes # 0.4 10^3/uL (0.2-0.9); Monocytes % 5.1 %; Neutrophils # 5.59 10^3/uL (1.8-7.7); Neutrophils % 67.8 %; Nucleated Red Blood Cells % 0 %; Platelet Count 185 10^3/cmm (157-399); Red Blood Count 4.48 10^6/uL (3.85-5.65); Red Cell Distribution Width 13.1 % (12.1-15.1); White Blood Count 8.23 10^3/uL (3.29-11.43)
[2024-11-07 17:55] LABS: Slide Review Slide Review Perform
[2024-11-11 10:50] LABS: P210 BCR ALB1 NOT DETECTED; P210 BCR ALB1 Yes Test Yes; Prior Results NG; Source whole blood
== END 2024-11-19 23:59 | disposition home or self-care (01) ==
PROVIDERS: Visit Provider Internal Medicine
DX: Z53.9 Procedure and treatment not carried out, unspecified reason (principal)
CPT/HCPCS: 36415; 80053; 81206; 83010; 83615; 84550; 85025; 85045

== ENCOUNTER 2025-01-17 14:40 | Oncology outpatient (recurring) (ONCR) | payer OTHER, SELFPAY ==
[2025-01-10 15:04] LABS: Hematocrit 37.2 % (36-47); Hemoglobin 12.90 g/dL (11.27-16.99); Mean Corpuscular HGB Conc 34.7 g/dL (30-55); Mean Corpuscular Hemoglobin 29.3 pg (27-33); Mean Corpuscular Volume 84.4 fl (85-98); Nucleated Red Blood Cells % 0 %; Platelet Count 262 10^3/cmm (157-399); Red Blood Count 4.41 10^6/uL (3.85-5.65); White Blood Count 6.71 10^3/uL (3.29-11.43)
[2025-01-10 15:23] LABS: Alanine Aminotransferase 12 U/L (0-33); Albumin Level 4.5 g/dL (3.5-5.2); Alkaline Phosphatase 85 U/L (35-105); Anion Gap 16.0 (5-19); Aspartate Amino Transferase 14 U/L (0-32); Blood Urea Nitrogen 11 mg/dL (6-20); Calcium 9.0 mg/dL (8.5-10.5); Carbon Dioxide 21 mmol/L (22-29); Chloride 103 mmol/L (98-107); Globulin 2.5 g/dL (1.3-4.6); Glucose 93 mg/dL (65-115); Osmolality Calculated 281 mOsm/kg (285-295); Potassium 4.0 mmol/L (3.5-5.1); Sodium 136 mmol/L (136-145); Total Protein 7.0 g/dL (6.6-8.7)
[2025-01-13 21:48] LABS: BCR ABL1 (IS) 0.000 (0.000); P210 BCR ALB1 NOT DETECTED; P210 BCR ALB1 Yes Test Yes; Source blood
== END 2025-01-19 23:59 | disposition home or self-care (01) ==
PROVIDERS: Internal Medicine Medical Oncology; Visit Provider Internal Medicine
DX: Z53.9 Procedure and treatment not carried out, unspecified reason (principal)
CPT/HCPCS: 36415; 80053; 81206; 85025

== ENCOUNTER 2025-03-14 14:44 | Oncology outpatient (recurring) (ONCR) | payer OTHER, SELFPAY ==
[2025-03-07 14:31] LABS: Hematocrit 38.1 % (36-47); Hemoglobin 13.10 g/dL (11.27-16.99); Mean Corpuscular HGB Conc 34.4 g/dL (30-55); Mean Corpuscular Hemoglobin 28.5 pg (27-33); Mean Corpuscular Volume 82.8 fl (85-98); Nucleated Red Blood Cells % 0 %; Platelet Count 304 10^3/cmm (157-399); Red Blood Count 4.60 10^6/uL (3.85-5.65); White Blood Count 8.75 10^3/uL (3.29-11.43)
[2025-03-07 14:47] LABS: Alanine Aminotransferase 14 U/L (0-33); Albumin Level 4.8 g/dL (3.5-5.2); Alkaline Phosphatase 88 U/L (35-105); Anion Gap 15.8 (5-19); Aspartate Amino Transferase 15 U/L (0-32); Blood Urea Nitrogen 12 mg/dL (6-20); Calcium 9.4 mg/dL (8.5-10.5); Carbon Dioxide 22 mmol/L (22-29); Chloride 104 mmol/L (98-107); Globulin 2.9 g/dL (1.3-4.6); Glucose 117 mg/dL (65-115); Magnesium 2.2 mg/dL (1.7-2.3); Osmolality Calculated 287 mOsm/kg (285-295); Potassium 3.8 mmol/L (3.5-5.1); Sodium 138 mmol/L (136-145); Total Protein 7.7 g/dL (6.6-8.7); Uric Acid 4.2 mg/dL (2.4-5.7)
[2025-03-09 22:59] LABS: BCR ABL1 (IS) 0.003 (0.000); P210 BCR ALB1 DETECTED; P210 BCR ALB1 Yes Test Yes; Source blood
== END 2025-03-21 23:59 | disposition home or self-care (01) ==
PROVIDERS: Internal Medicine Medical Oncology; Visit Provider Internal Medicine
DX: Z53.9 Procedure and treatment not carried out, unspecified reason (principal)
CPT/HCPCS: 36415; 80053; 81206; 83010; 83615; 83735; 84100; 84550; 85025; 88374

== ENCOUNTER 2025-05-16 13:07 | Oncology outpatient (recurring) (ONCR) | payer OTHER, SELFPAY ==
[2025-05-09 11:24] LABS: Hematocrit 39.9 % (36-47); Hemoglobin 13.30 g/dL (11.27-16.99); Mean Corpuscular HGB Conc 33.3 g/dL (30-55); Mean Corpuscular Hemoglobin 28.1 pg (27-33); Mean Corpuscular Volume 84.2 fl (85-98); Nucleated Red Blood Cells % 0 %; Platelet Count 261 10^3/cmm (157-399); Red Blood Count 4.74 10^6/uL (3.85-5.65); White Blood Count 5.20 10^3/uL (3.29-11.43)
[2025-05-09 11:42] LABS: Alanine Aminotransferase 14 U/L (0-33); Albumin Level 4.7 g/dL (3.5-5.2); Alkaline Phosphatase 91 U/L (35-105); Anion Gap 10.6 (5-19); Aspartate Amino Transferase 15 U/L (0-32); Blood Urea Nitrogen 9 mg/dL (6-20); Calcium 9.2 mg/dL (8.5-10.5); Carbon Dioxide 28 mmol/L (22-29); Chloride 105 mmol/L (98-107); Globulin 2.4 g/dL (1.3-4.6); Glucose 96 mg/dL (65-115); Magnesium 2.2 mg/dL (1.7-2.3); Osmolality Calculated 287 mOsm/kg (285-295); Potassium 4.6 mmol/L (3.5-5.1); Sodium 139 mmol/L (136-145); Total Protein 7.1 g/dL (6.6-8.7)
[2025-05-12 17:18] LABS: BCR ABL1 (IS) 0.000 (0.000); P210 BCR ALB1 NOT DETECTED; P210 BCR ALB1 Yes Test Yes; Source blood
== END 2025-05-21 23:59 | disposition home or self-care (01) ==
PROVIDERS: Nurse Practitioner; Visit Provider Internal Medicine
DX: Z53.9 Procedure and treatment not carried out, unspecified reason (principal)
CPT/HCPCS: 36415; 80053; 81206; 83010; 83615; 83735; 84100; 85025; 88374